=== PATIENT | female | born 1940 | race Caucasian/White ===

== ENCOUNTER 2019-05-22 15:11 | Emergency (ER) | payer MEDICARE, BC ==
[2019-05-22] MEDS ORDERED: Sodium Chloride 0.9% 10 ML Syringe FLUSH PRN (15:29)
[2019-05-22 15:43] VITALS: BP 112/16
--- NOTE | 2019-05-22 15:46 | EDM.PDOC ---
ED HPI GENERAL MEDICAL PROBLEM - General Chief Complaint: Respiratory Problem Stated Complaint: SOB Time Seen by Provider: 05/22/19 15:15 Source of Information: Reports: Patient, EMS - History of Present Illness INITIAL COMMENTS - FREE TEXT/NARRATIVE: Patient is a 78 yo WF who presented to the ED because apparently she slipped and fell from her wheelchair and was on the ground for an hour. She could not get up from the ground because of her amputated leg and it took her an hour to call 911. Upon EMS arrival at the seen she is hypoxemic with oxygen saturation of 65. According to Beatriz she has cough which is non productive with associated dyspnea. There is no fever or chills. - Related Data Allergies Allergy/AdvReac Type Severity Reaction Status Date / Time No Known Allergies Allergy Verified 10/31/16 17:42 Home Meds: Home Meds Aspirin/Calcium Carbonate/Mag [Aspirin Buffered 325 mg Tab] 325 mg PO DAILY 08/08 [History] Calcium Carbonate/Vitamin D3 [Caltrate 600 Plus D3 Tablet] 1 each PO DAILY 05/04 [History] Carvedilol [Coreg] 6.25 mg PO BIDMEALS 05/04/15 [History] Cholecalciferol (Vitamin D3) [Vitamin D3] 1,000 unit PO DAILY 05/04/15 [History] Glimepiride [Amaryl] 4 mg PO WITHBREAKFAST 05/04/15 [History] Omeprazole 20 mg PO DAILY PRN 05/04/15 [History] Pravastatin [Pravachol] 20 mg PO BEDTIME 05/04/15 [History] Sertraline [Zoloft] 200 mg PO DAILY 05/04/15 [History] metFORMIN [Glucophage] 1,000 mg PO BIDMEALS 05/04/15 [History] Fluticasone Propionate [Flonase] 1 spray BEN BID 11/01/16 [History] Azithromycin [IMW: Azithromycin] 250 mg PO DAILY 6 Days tablet 11/04/16 [Rx] Past Medical History HEENT History: Reports: Other (See Below) Other HEENT History: eyes dry since has been ill Cardiovascular History: Reports: Bypass, Heart Valve Replacement, Hypertension Gastrointestinal History: Reports: Cholelithiasis Genitourinary History: Reports: Urinary Incontinence 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 Denies: Sputum Cardiovascular: Reports: No Symptoms. Denies: Chest Pain, Edema Endocrine: Reports: No Symptoms GI/Abdominal: Reports: No Symptoms : Reports: No Symptoms Musculoskeletal: Reports: No Symptoms Skin: Reports: No Symptoms Neurological: Reports: No Symptoms ED EXAM, GENERAL - Physical Exam Exam: See Below Exam Limited By: No Limitations General Appearance: Alert, No Apparent Distress Eye Exam: Bilateral Eye: PERRL Ears: Normal External Exam Ear Exam: Bilateral Ear: TM Bulging, TM Perforation Nose: Normal Inspection, Normal Mucosa Throat/Mouth: Normal Inspection, Normal Lips Head: Atraumatic, Normocephalic Neck: Normal Inspection, Supple, Non-Tender Respiratory/Chest: No Respiratory Distress, Lungs Clear, No Accessory Muscle Use Cardiovascular: Normal Peripheral Pulses, Regular Rate, Rhythm GI/Abdominal: Normal Bowel Sounds, Non-Tender, No Organomegaly, No Distention Back Exam: Normal Inspection Extremities: Normal Inspection, Normal Range of Motion Neurological: Alert, Oriented, CN II-XII Intact, No Motor/Sensory Deficits Course - Vital Signs Text/Narrative:: labs reviewed with patient and son IVF bolus Zosyn 4.5 gm duoneb 0xygen VNC Consult with Rodrick Hernández-Dr Diaz and agreed with above plan Last Recorded V/S: Last Vital Signs Temp 36.4 C 05/22/19 15:12 Pulse 81 05/22/19 15:12 Resp 24 H 05/22/19 15:12 BP 112/16 L 05/22/19 15:12 Pulse Ox 94 L 05/22/19 15:12 - Orders/Labs/Meds Orders: Active Orders 24 hr Category Date Time Status EKG Documentation Completion [RC] ASDIRECTED Care 05/22/19 15:20 Active Chest 1V Frontal [CR] Stat Exams 05/22/19 15:18 Taken CULTURE BLOOD [BC] Urgent Lab 05/22/19 16:00 Received CULTURE BLOOD [BC] Urgent Lab 05/22/19 16:10 Received Piperacillin/Tazobactam [Zosyn] 4.5 gm Med 05/22/19 16:30 Active Sodium Chloride 0.9% [Normal Saline] 100 ml IV Q6H Sodium Chloride 0.9% [Normal Saline] 1,000 ml Med 05/22/19 16:07 Active IV .BOLUS Sodium Chloride 0.9% [Saline Flush] Med 05/22/19 15:29 Active 10 ml FLUSH ASDIRECTED PRN Blood Culture x2 Reflex Set [OM.PC] Urgent Oth 05/22/19 15:56 Ordered Resuscitation Status Routine Resus Stat 05/22/19 16:20 Ordered EKG 12 Lead [EK] Routine Ther 05/22/19 15:18 Ordered Medication Orders Sodium Chloride (Normal Saline) 1,000 mls @ 999 mls/hr IV .BOLUS ONE Stop: 05/22/19 17:07 Last Admin: 05/22/19 16:10 Dose: 999 mls/hr Piperacillin Sod/Tazobactam (Sod 4.5 gm/ Sodium Chloride) 100 mls @ 200 mls/hr IV Q6H [facility] Last Admin: 05/22/19 16:34 Dose: 200 mls/hr Sodium Chloride (Saline Flush) 10 ml FLUSH ASDIRECTED PRN PRN Reason: IV Use Last Admin: 05/22/19 15:38 Dose: 10 ml Labs: Laboratory Tests 05/22/19 05/22/19 05/22/19 Range/Units 15:30 15:30 15:30 WBC 12.0 (4.5-12.0) X10-3/uL RBC 4.64 (3.23-5.20) x10(6)uL Hgb 14.4 (11.5-15.5) g/dL Hct 42.7 (30.0-51.3) % MCV 92.0 (80-96) fL MCH 31.1 (27.7-33.6) pg MCHC 33.8 (32.2-35.4) g/dL RDW 14.1 (11.5-15.5) % Plt Count 264 (125-369) X10(3)uL MPV 7.7 (7.4-10.4) fL Neut % (Auto) 80.5 (46-82) % Lymph % (Auto) 11.1 L (13-37) % [place] % (Auto) 6.2 (4-12) % Eos % (Auto) 2 (1.0-5.0) % Baso % (Auto) 0 (0-2) % Neut # (Auto) 9.8 H (1.6-8.3) # Lymph # (Auto) 1.3 (0.6-5.0) # [place] # (Auto) 0.7 (0.0-1.3) # Eos # (Auto) 0.2 (0.0-0.8) # Baso # (Auto) 0.0 (0.0-0.2) # POC VBG pH (7.31-7.41) POC VBG pCO2 (41-51) mmHG POC VBG HCO3 (23-28) mmol/L POC VBG Total CO2 (24-29) mmol/L POC VBG Base Excess (-2-3) mmol/L Sodium 137 (135-145) mmol/L Potassium 5.1 (3.5-5.3) mmol/L Chloride 102 (100-110) mmol/L Carbon Dioxide 21 (21-32) mmol/L BUN 35 H (7-18) mg/dL Creatinine 1.3 H (0.55-1.02) mg/dL Est Cr Clr Drug Dosing 34.68 mL/min Estimated GFR (MDRD) 40 L (>60) BUN/Creatinine Ratio 26.9 H (9-20) Glucose 171 H (80-116) mg/dL Lactic Acid (0.4-2.2) mmol/L Calcium 8.9 (8.6-10.2) mg/dL Total Bilirubin 0.5 (0.1-1.3) mg/dL AST 39 H (5-25) IU/L ALT 42 H (12-36) U/L Alkaline Phosphatase 111 (56-112) IU/L Troponin I 0.018 (<0.017-0.056) ng/mL NT-Pro-B Natriuret Pep 4838 H* (<=450) pg/mL Total Protein 7.3 (6.0-8.0) g/dL Albumin 3.5 (3.2-4.6) g/dL Globulin 3.8 g/dL Albumin/Globulin Ratio 0.9 Urine Color (YELLOW) Urine Appearance (CLEAR) Urine pH (5.0-6.5) Ur Specific [place] (1.010-1.025) Urine Protein (NEGATIVE) mg/dL Urine Glucose (UA) (NORMAL) mg/dL Urine Ketones (NEGATIVE) mg/dL Urine Occult Blood (NEGATIVE) Urine Nitrite (NEGATIVE) Urine Bilirubin (NEGATIVE) Urine Urobilinogen (NEGATIVE) mg/dL Ur Leukocyte Esterase (NEGATIVE) Urine RBC (0-5) Urine WBC (0-5) Ur Squamous Epith Cells (NS,R,O) Urine Bacteria (NS) 05/22/19 05/22/19 05/22/19 Range/Units 15:30 15:48 16:38 WBC (4.5-12.0) X10-3/uL RBC (3.23-5.20) x10(6)uL Hgb (11.5-15.5) g/dL Hct (30.0-51.3) % MCV (80-96) fL MCH (27.7-33.6) pg MCHC (32.2-35.4) g/dL RDW (11.5-15.5) % Plt Count (125-369) X10(3)uL MPV (7.4-10.4) fL Neut % (Auto) (46-82) % Lymph % (Auto) (13-37) % [place] % (Auto) (4-12) % Eos % (Auto) (1.0-5.0) % Baso % (Auto) (0-2) % Neut # (Auto) (1.6-8.3) # Lymph # (Auto) (0.6-5.0) # [place] # (Auto) (0.0-1.3) # Eos # (Auto) (0.0-0.8) # Baso # (Auto) (0.0-0.2) # POC VBG pH 7.28 L (7.31-7.41) POC VBG pCO2 37.3 L (41-51) mmHG POC VBG HCO3 17.5 L (23-28) mmol/L POC VBG Total CO2 19 L (24-29) mmol/L POC VBG Base Excess -9 L (-2-3) mmol/L Sodium (135-145) mmol/L Potassium (3.5-5.3) mmol/L Chloride (100-110) mmol/L Carbon Dioxide (21-32) mmol/L BUN (7-18) mg/dL Creatinine (0.55-1.02) mg/dL Est Cr Clr Drug Dosing mL/min Estimated GFR (MDRD) (>60) BUN/Creatinine Ratio (9-20) Glucose (80-116) mg/dL Lactic Acid 4.6 H (0.4-2.2) mmol/L Calcium (8.6-10.2) mg/dL Total Bilirubin (0.1-1.3) mg/dL AST (5-25) IU/L ALT (12-36) U/L Alkaline Phosphatase (56-112) IU/L Troponin I (<0.017-0.056) ng/mL NT-Pro-B Natriuret Pep (<=450) pg/mL Total Protein (6.0-8.0) g/dL Albumin (3.2-4.6) g/dL Globulin g/dL Albumin/Globulin Ratio Urine Color Yellow (YELLOW) Urine Appearance Clear (CLEAR) Urine pH 5.0 (5.0-6.5) Ur Specific [place] 1.020 (1.010-1.025) Urine Protein 30 H (NEGATIVE) mg/dL Urine Glucose (UA) 50 H (NORMAL) mg/dL Urine Ketones Negative (NEGATIVE) mg/dL Urine Occult Blood Negative (NEGATIVE) Urine Nitrite Negative (NEGATIVE) Urine Bilirubin Negative (NEGATIVE) Urine Urobilinogen Normal (NEGATIVE) mg/dL Ur Leukocyte Esterase Small H (NEGATIVE) Urine RBC 0-5 (0-5) Urine WBC 0-5 (0-5) Ur Squamous Epith Cells Moderate H (NS,R,O) Urine Bacteria Moderate H (NS) Meds: Medications Generic Name Dose Route Start Last Admin Trade Name Freq PRN Reason Stop Dose Admin Sodium Chloride 1,000 mls @ 999 mls/hr 05/22/19 16:07 05/22/19 16:10 Normal Saline IV 05/22/19 17:07 999 mls/hr .BOLUS ONE Administration Piperacillin Sod/Tazobactam 100 mls @ 200 mls/hr 05/22/19 16:30 05/22/19 16: 34 Sod 4.5 gm/ Sodium Chloride IV 200 mls/hr Q6H SANDIP Administration Sodium Chloride 10 ml 05/22/19 15:29 05/22/19 15:38 Saline Flush FLUSH 10 ml ASDIRECTED PRN Administration IV Use Departure - Departure Time of Disposition: 16:00 Disposition: DC/Tfer to SNF 03 Clinical Impression: Sepsis - Discharge Information Referrals: Willis Salgado MD [Primary Care Provider] - Forms: ED Department Discharge - My Orders Last 24 Hours: My Active Orders 05/22/19 15:18 Chest 1V Frontal [CR] Stat EKG 12 Lead [EK] Routine 05/22/19 15:20 EKG Documentation Completion [RC] ASDIRECTED 05/22/19 15:29 Sodium Chloride 0.9% [Saline Flush] 10 ml FLUSH ASDIRECTED PRN 05/22/19 15:56 Blood Culture x2 Reflex Set [OM.PC] Urgent 05/22/19 16:00 CULTURE BLOOD [BC] Urgent 05/22/19 16:07 Sodium Chloride 0.9% [Normal Saline] 1,000 ml IV .BOLUS 05/22/19 16:10 CULTURE BLOOD [BC] Urgent 05/22/19 16:20 Resuscitation Status Routine 05/22/19 16:30 Piperacillin/Tazobactam [Zosyn] 4.5 gm Sodium Chloride 0.9% [Normal Saline] 100 ml IV Q6H - Assessment/Plan Last 24 Hours: My Active Orders 05/22/19 15:18 Chest 1V Frontal [CR] Stat EKG 12 Lead [EK] Routine 05/22/19 15:20 EKG Documentation Completion [RC] ASDIRECTED 05/22/19 15:29 Sodium Chloride 0.9% [Saline Flush] 10 ml FLUSH ASDIRECTED PRN 05/22/19 15:56 Blood Culture x2 Reflex Set [OM.PC] Urgent 05/22/19 16:00 CULTURE BLOOD [BC] Urgent 05/22/19 16:07 Sodium Chloride 0.9% [Normal Saline] 1,000 ml IV .BOLUS 05/22/19 16:10 CULTURE BLOOD [BC] Urgent 05/22/19 16:20 Resuscitation Status Routine 05/22/19 16:30 Piperacillin/Tazobactam [Zosyn] 4.5 gm Sodium Chloride 0.9% [Normal Saline] 100 ml IV Q6H
[2019-05-22] MEDS ORDERED: Sodium Chloride 0.9% 1,000 ML IV ONE (16:07)
[2019-05-22] MEDS ORDERED: Piperacillin/Tazobactam 4.5 GM in Sodium Chloride 0.9% 100 ML IV SCH (16:30)
== END 2019-05-22 17:34 ==
LOC: FB.ED 15:11
DX: A41.9 Sepsis, unspecified organism (principal); I10 Essential (primary) hypertension; F32.9 Major depressive disorder, single episode, unspecified; E11.9 Type 2 diabetes mellitus without complications; Z79.82 Long term (current) use of aspirin; Z79.899 Other long term (current) drug therapy; Z79.84 Long term (current) use of oral hypoglycemic drugs
CPT/HCPCS: 36415; 71045; 80053; 81001; 82803; 83605; 83880; 84484; 85025; 87040; 93005; 96361; 96365; 99285; J2543; J7030

== ENCOUNTER 2019-10-24 14:50 | Emergency (ER) | payer BC, MEDICARE ==
[2019-10-24] MEDS ORDERED: MINERAL OIL RECTAL ONE (15:09)
--- NOTE | 2019-10-24 15:16 | EDM.PDOC ---
ED HPI GENERAL MEDICAL PROBLEM - General Stated Complaint: ABD PAIN Time Seen by Provider: 10/24/19 15:00 Source of Information: Reports: Patient History Limitations: Reports: No Limitations - History of Present Illness INITIAL COMMENTS - FREE TEXT/NARRATIVE: has pain in the left upper quadrant since 2-3 days with associated pain in the ribs in the same area has no fever or chills , no nausea or vomiting states she has not had BM for 3-4 days, has not had any appetite had same in the past one week and resolved with enema Onset: Gradual Duration: Day(s): (3) Location: Reports: Abdomen Quality: Reports: Ache, Dull Severity: Moderate Improves with: Reports: Movement Worsens with: Reports: Eating Context: Reports: Activity Associated Symptoms: Reports: No Other Symptoms - Related Data Allergies Allergy/AdvReac Type Severity Reaction Status Date / Time No Known Allergies Allergy Verified 10/31/16 17:42 Home Meds: Home Meds Aspirin/Calcium Carbonate/Mag [Aspirin Buffered 325 mg Tab] 325 mg PO DAILY 08/08 [History] Calcium Carbonate/Vitamin D3 [Caltrate 600 Plus D3 Tablet] 1 each PO DAILY 05/04 [History] Cholecalciferol (Vitamin D3) [Vitamin D3] 1,000 unit PO DAILY 05/04/15 [History] Glimepiride [Amaryl] 4 mg PO WITHBREAKFAST 05/04/15 [History] Omeprazole 20 mg PO DAILY PRN 05/04/15 [History] Pravastatin [Pravachol] 20 mg PO BEDTIME 05/04/15 [History] Sertraline [Zoloft] 200 mg PO DAILY 05/04/15 [History] carvediloL [Coreg] 6.25 mg PO BIDMEALS 05/04/15 [History] metFORMIN [Glucophage] 1,000 mg PO BIDMEALS 05/04/15 [History] Fluticasone Propionate [Flonase] 1 spray BEN BID 11/01/16 [History] Azithromycin [IMW: Azithromycin] 250 mg PO DAILY 6 Days tablet 11/04/16 [Rx] Sennosides/Docusate Sodium [Sennosides-Docusate Sodium] 1 each PO BID 30 Days # 60 tab 10/24/19 [Rx] Past Medical History HEENT History: Reports: Other (See Below) Other HEENT History: eyes dry since has been ill Cardiovascular History: Reports: Bypass, Heart Valve Replacement, Hypertension Gastrointestinal History: Reports: Cholelithiasis Genitourinary History: Reports: Urinary Incontinence 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 Constitutional: Reports: No Symptoms HEENT: Reports: No Symptoms Respiratory: Reports: No Symptoms Cardiovascular: Reports: No Symptoms Endocrine: Reports: No Symptoms GI/Abdominal: Reports: Abdominal Pain, Anorexia, Decreased Appetite, Distension , Flatus Musculoskeletal: Reports: Back Pain Skin: Reports: No Symptoms Neurological: Reports: No Symptoms Psychiatric: Reports: No Symptoms Hematologic/Lymphatic: Reports: No Symptoms ED EXAM, GI/ABD - Physical Exam Exam: See Below Exam Limited By: No Limitations General Appearance: Alert, WD/WN, No Apparent Distress Eyes: Bilateral: EOMI Ears: Normal External Exam Nose: Normal Inspection Throat/Mouth: Normal Inspection Head: Atraumatic, Normocephalic Neck: Supple, Non-Tender, Full Range of Motion Respiratory/Chest: Lungs Clear, Other (tender ribso n the left side of chest wall) GI/Abdominal Exam: Soft, Tender (in the LUQ), Abnormal Bowel Sounds (hypoactive) . No: Guarding, Rigid, Rebound Back Exam: Full Range of Motion. No: CVA Tenderness (R), CVA Tenderness (L) Extremities: Normal Range of Motion, Non-Tender, Other (left leg amputated) Neurological: Alert, Oriented Course - Orders/Labs/Meds Orders: Active Orders 24 hr Category Date Time Status Abdomen 2V AP Flat Upright [CR] Stat Exams 10/24/19 15:08 Taken Labs: Laboratory Tests 10/24/19 Range/Units 15:40 WBC 6.6 (4.5-12.0) X10-3/uL RBC 4.45 (3.23-5.20) x10(6)uL Hgb 13.5 (11.5-15.5) g/dL Hct 40.6 (30.0-51.3) % MCV 91.2 (80-96) fL MCH 30.3 (27.7-33.6) pg MCHC 33.2 (32.2-35.4) g/dL RDW 13.2 (11.5-15.5) % Plt Count 274 (125-369) X10(3)uL MPV 7.2 L (7.4-10.4) fL Neut % (Auto) 62.3 (46-82) % Lymph % (Auto) 29.0 (13-37) % [place] % (Auto) 8.0 (4-12) % Eos % (Auto) 0 L (1.0-5.0) % Baso % (Auto) 1 (0-2) % Neut # (Auto) 4.2 (1.6-8.3) # Lymph # (Auto) 1.9 (0.6-5.0) # [place] # (Auto) 0.5 (0.0-1.3) # Eos # (Auto) 0.0 (0.0-0.8) # Baso # (Auto) 0.0 (0.0-0.2) # Meds: Medications Discontinued Medications Generic Name Dose Route Start Last Admin Trade Name Terrellq PRN Reason Stop Dose Admin Acetaminophen 1,000 mg 10/24/19 15:55 10/24/19 16:07 Tylenol Extra Strength PO 10/24/19 15:56 1,000 mg ONETIME ONE Administration Mineral Oil 133 ml 10/24/19 15:09 10/24/19 16:07 Mineral Oil Enema RECTAL 10/24/19 15:10 133 ml ONETIME ONE Administration - Re-Assessments/Exams Free Text/Narrative Re-Assessment/Exam: 10/24/19 16:59 pt was given enema and had good return , feels beer will start on Pericolace instead of Miralax Departure - Departure Time of Disposition: 05:05 Disposition: Home, Self-Care 01 Clinical Impression: Constipation, Continuous left upper quadrant pain, Costochondritis, acute - Discharge Information *PRESCRIPTION DRUG MONITORING PROGRAM REVIEWED*: Not Applicable *COPY OF PRESCRIPTION DRUG MONITORING REPORT IN PATIENT GERRI: Not Applicable Instructions: Costochondritis, Posc-en-Zkgm, Constipation, Adult, High-Fiber Diet Referrals: Willis Salgado MD [Primary Care Provider] - Sepsis Event Note - Focused Exam Date Exam was Performed: 10/24/19 Time Exam was Performed: 16:57 - My Orders Last 24 Hours: My Active Orders 10/24/19 15:08 Abdomen 2V AP Flat Upright [CR] Stat - Assessment/Plan Last 24 Hours: My Active Orders 10/24/19 15:08 Abdomen 2V AP Flat Upright [CR] Stat
[2019-10-24] MEDS ORDERED: Acetaminophen 500 MG Tab PO ONE (15:55)
--- NOTE | 2019-10-24 17:48 | CR ---
INDICATION: Left-sided abdominal pain. ABDOMEN, TWO VIEW: Four images of the abdomen were obtained in supine and upright projections 10/24/19 - no comparisons. Moderately severe dextroconvex rotoscoliosis of the lumbar spine is noted with degenerative hypertrophic changes and disk disease at all levels in varying degrees, most severe more inferiorly. The pattern of gas and feces is nonspecific without evidence of free air or obstruction. Somewhat increased density in the pelvis is most likely on the basis of some stool in the rectosigmoid and rectum. However, no significant distention of the colon is seen to suggest an obstructive process. Phleboliths are noted in the pelvis. IMPRESSION: 1. Nonacute abdomen. 2. Rotoscoliosis with degenerative changes and disk disease lumbosacral spine. 3. ASD with aortic calcifications. MTDD
[2019-10-24 18:45] VITALS: BP 120/42; PULSE 66
== END 2019-10-24 17:20 | disposition home or self-care (01) ==
LOC: FB.ED 14:50
DX: R10.32 Left lower quadrant pain (principal); M94.0 Chondrocostal junction syndrome [Tietze]; K59.00 Constipation, unspecified; E11.9 Type 2 diabetes mellitus without complications; I10 Essential (primary) hypertension; F32.9 Major depressive disorder, single episode, unspecified; Z79.82 Long term (current) use of aspirin; Z79.899 Other long term (current) drug therapy; Z79.84 Long term (current) use of oral hypoglycemic drugs
CPT/HCPCS: 36415; 74019; 85025; 99283; 99284; A9270

== ENCOUNTER 2019-10-30 19:51 | Emergency (ER) | payer MEDICARE ==
--- NOTE | 2019-10-30 20:19 | EDM.PDOC ---
ED HPI GENERAL MEDICAL PROBLEM - General Stated Complaint: CHEST PAIN Time Seen by Provider: 10/30/19 20:15 Source of Information: Reports: Patient History Limitations: Reports: No Limitations - History of Present Illness INITIAL COMMENTS - FREE TEXT/NARRATIVE: 79-year-old female who reports onset of left sided chest pain that is mostly lower chest pain about 3-4 weeks ago. She reports the pain has been there continuously since then but it has been at a low level until today at approximately 1 PM when she reports it begin to be worse with sharp pain that seemed to radiate up into her shoulder. She also has had sharp pains going down her left arm for about the past 5 days but that also seem to be worse today. This began to be worse at approximately 1 PM today. She rates the pain as an 8- 10/10. It is worse with deep breath and with palpation. No nausea or vomiting today but she did have some nausea yesterday. She has been eating and drinking normally. No cough. No fevers. No weakness. No dizziness. No syncope or presyncope. She is a somewhat difficult historian and is rather vague about times but it does appear that this pain has been there for longer than one week. And it also appears to have been continual during this period of time. There are no other associated signs or symptoms. There are no other modifying factors. 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) (Nothing) Left Upper Arm Pain Score (Numeric/FACES): 10 Left Chest Pain Score (Numeric/FACES): 8 - Related Data Allergies Allergy/AdvReac Type Severity Reaction Status Date / Time No Known Allergies Allergy Verified 10/31/16 17:42 Home Meds: Home Meds Aspirin/Calcium Carbonate/Mag [Aspirin Buffered 325 mg Tab] 325 mg PO DAILY 08/08 [History] Glimepiride [Amaryl] 4 mg PO WITHBREAKFAST 05/04/15 [History] Omeprazole 20 mg PO DAILY PRN 05/04/15 [History] Pravastatin [Pravachol] 20 mg PO BEDTIME 05/04/15 [History] Sertraline [Zoloft] 200 mg PO DAILY 05/04/15 [History] carvediloL [Coreg] 6.25 mg PO BIDMEALS 05/04/15 [History] metFORMIN [Glucophage] 1,000 mg PO BIDMEALS 05/04/15 [History] Hydrocodone/Acetaminophen [[place] 5-325 Tablet] 1 each PO Q6H PRN #14 tablet 03/13 [Rx] Sennosides/Docusate Sodium [Sennosides-Docusate Sodium] 1 each PO DAILY [History] valACYclovir [Valtrex] 1,000 mg PO TID 7 Days #21 tab 10/30/19 [Rx] Past Medical History HEENT History: Reports: Other (See Below) Other HEENT History: eyes dry since has been ill Cardiovascular History: Reports: Bypass, CAD, Heart Valve Replacement, Hypertension Genitourinary History: Reports: Urinary Incontinence 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 Musculoskeletal History: Reports: Amputation, Other (See Below) Other Musculoskeletal History: left bka Psychiatric History: Reports: Depression Endocrine/Metabolic History: Reports: Diabetes, Type II Other Hematologic History: BLOOD CLOTS IN HEART YEARS AGO - Past Surgical History Cardiovascular Surgical History: Reports: Coronary Artery Bypass, Valve Replacement (Aortic valve replacement with pig valve) GI Surgical History: Reports: Cholecystectomy Musculoskeletal Surgical History: Reports: Amputation (Left below the knee amputation) Social & Family History - Tobacco Use Smoking Status *Q: Never Smoker - Caffeine Use Caffeine Use: Reports: Soda - Alcohol Use Alcohol Use History: No - Living Situation & Occupation Occupation: Retired Social History Comment: Lives with her son who is her caregiver ED ROS GENERAL - Review of Systems Review Of Systems: See Below Constitutional: Reports: No Symptoms HEENT: Reports: No Symptoms Respiratory: Reports: Shortness of Breath, Pleuritic Chest Pain Cardiovascular: Reports: Chest Pain GI/Abdominal: Reports: No Symptoms : Reports: No Symptoms Musculoskeletal: Reports: Arm Pain (Left arm pain) Skin: Reports: No Symptoms Neurological: Reports: No Symptoms Hematologic/Lymphatic: Reports: Easy Bruising (Chronically anticoagulated with Coumadin) ED EXAM, GENERAL - Physical Exam Exam: See Below Exam Limited By: No Limitations General Appearance: Alert, WD/WN, Moderate Distress Eye Exam: Bilateral Eye: EOMI, Normal Inspection, PERRL Ears: Normal External Exam, Hearing Grossly Normal Ear Exam: Bilateral Ear: Auricle Normal Nose: Normal Inspection, Normal Mucosa, No Blood Throat/Mouth: Normal Inspection, Normal Oropharynx, Normal Voice, No Airway Compromise Head: Atraumatic, Normocephalic Neck: Normal Inspection, Supple, Non-Tender, Full Range of Motion Respiratory/Chest: No Respiratory Distress, Lungs Clear, Normal Breath Sounds, Other (Tender to palpation over her left anterior lateral chest. No crepitus or subcutaneous emphysema.) Cardiovascular: Normal Peripheral Pulses, Regular Rate, Rhythm, Systolic Murmur Peripheral Pulses: 2+: Radial (L), Radial (R), Dorsalis Pedis (L), Dorsalis Pedis (R) GI/Abdominal: Normal Bowel Sounds, Soft, Non-Tender, No Mass Back Exam: Normal Inspection, Full Range of Motion Extremities: Normal Inspection, Normal Range of Motion Neurological: Alert, CN II-XII Intact, Normal Cognition, No Motor/Sensory Deficits, Other (Conversant but somewhat poor historian. Unsure of times) Skin Exam: Warm, Dry, Intact, Normal Color, No Rash EKG INTERPRETATION EKG Date: 10/30/19 Time: 20:07 Rhythm: NSR Rate (Beats/Min): 76 [place]: Normal P-Wave: Enlarged QRS: Normal ST-T: Other (LVH with repolarization abnormality) QT: Prolonged (QTc) Comparison: No Change (No change from EKG on 05/21/2019.) Course - Vital Signs Last Recorded V/S: Last Vital Signs Temp 37.3 C 10/30/19 20:18 Pulse 75 10/30/19 20:39 Resp 20 10/30/19 20:39 BP 112/61 10/30/19 20:39 Pulse Ox - Orders/Labs/Meds Orders: Active Orders 24 hr Category Date Time Status EKG Documentation Completion [RC] ASDIRECTED Care 10/30/19 20:32 Active Sodium Chloride 0.9% [Saline Flush] Med 10/30/19 20:31 Active 10 ml FLUSH ASDIRECTED PRN Peripheral IV Insertion Adult [OM.PC] Routine Oth 10/30/19 20:31 Ordered EKG 12 Lead [EK] Routine Ther 10/30/19 20:31 Ordered Medication Orders Sodium Chloride (Saline Flush) 10 ml FLUSH ASDIRECTED PRN PRN Reason: Keep Vein Open Last Admin: 10/30/19 21:22 Dose: 10 ml Labs: Laboratory Tests 10/30/19 10/30/19 10/30/19 Range/Units 20:45 20:45 20:45 WBC 6.6 (4.5-12.0) X10-3/uL RBC 3.96 (3.23-5.20) x10(6)uL Hgb 12.2 (11.5-15.5) g/dL Hct 36.4 (30.0-51.3) % MCV 91.9 (80-96) fL MCH 30.9 (27.7-33.6) pg MCHC 33.6 (32.2-35.4) g/dL RDW 13.9 (11.5-15.5) % Plt Count 188 (125-369) X10(3)uL MPV 7.2 L (7.4-10.4) fL Neut % (Auto) 59.6 (46-82) % Lymph % (Auto) 28.2 (13-37) % [place] % (Auto) 10.9 (4-12) % Eos % (Auto) 1 (1.0-5.0) % Baso % (Auto) 1 (0-2) % Neut # (Auto) 3.9 (1.6-8.3) # Lymph # (Auto) 1.9 (0.6-5.0) # [place] # (Auto) 0.7 (0.0-1.3) # Eos # (Auto) 0.1 (0.0-0.8) # Baso # (Auto) 0.0 (0.0-0.2) # PT 10.1 (8.7-11.1) INR 1.04 (0.89-1.13) D-Dimer, Quantitative (0.0-0.59) mg/LFEU Sodium 139 (135-145) mmol/L Potassium 4.8 (3.5-5.3) mmol/L Chloride 104 (100-110) mmol/L Carbon Dioxide 24 (21-32) mmol/L BUN 32 H (7-18) mg/dL Creatinine 1.3 H (0.55-1.02) mg/dL Est Cr Clr Drug Dosing 34.12 mL/min Estimated GFR (MDRD) 40 L (>60) BUN/Creatinine Ratio 24.6 H (9-20) Glucose 207 H (80-116) mg/dL Calcium 9.1 (8.6-10.2) mg/dL Magnesium 1.9 (1.8-2.5) mg/dL Total Bilirubin 0.4 (0.1-1.3) mg/dL AST 58 H D (5-25) IU/L ALT 72 H D (12-36) U/L Alkaline Phosphatase 122 H (56-112) IU/L Troponin I (4.0-60.3) pg/mL Total Protein 6.8 (6.0-8.0) g/dL Albumin 3.5 (3.2-4.6) g/dL Globulin 3.3 g/dL Albumin/Globulin Ratio 1.1 10/30/19 10/30/19 Range/Units 20:45 20:55 WBC (4.5-12.0) X10-3/uL RBC (3.23-5.20) x10(6)uL Hgb (11.5-15.5) g/dL Hct (30.0-51.3) % MCV (80-96) fL MCH (27.7-33.6) pg MCHC (32.2-35.4) g/dL RDW (11.5-15.5) % Plt Count (125-369) X10(3)uL MPV (7.4-10.4) fL Neut % (Auto) (46-82) % Lymph % (Auto) (13-37) % [place] % (Auto) (4-12) % Eos % (Auto) (1.0-5.0) % Baso % (Auto) (0-2) % Neut # (Auto) (1.6-8.3) # Lymph # (Auto) (0.6-5.0) # [place] # (Auto) (0.0-1.3) # Eos # (Auto) (0.0-0.8) # Baso # (Auto) (0.0-0.2) # PT (8.7-11.1) INR (0.89-1.13) D-Dimer, Quantitative 0.57 (0.0-0.59) mg/LFEU Sodium (135-145) mmol/L Potassium (3.5-5.3) mmol/L Chloride (100-110) mmol/L Carbon Dioxide (21-32) mmol/L BUN (7-18) mg/dL Creatinine (0.55-1.02) mg/dL Est Cr Clr Drug Dosing mL/min Estimated GFR (MDRD) (>60) BUN/Creatinine Ratio (9-20) Glucose (80-116) mg/dL Calcium (8.6-10.2) mg/dL Magnesium (1.8-2.5) mg/dL Total Bilirubin (0.1-1.3) mg/dL AST (5-25) IU/L ALT (12-36) U/L Alkaline Phosphatase (56-112) IU/L Troponin I 20.9 (4.0-60.3) pg/mL Total Protein (6.0-8.0) g/dL Albumin (3.2-4.6) g/dL Globulin g/dL Albumin/Globulin Ratio Meds: Medications Generic Name Dose Route Start Last Admin Trade Name Freq PRN Reason Stop Dose Admin Sodium Chloride 10 ml 10/30/19 20:31 10/30/19 21:22 Saline Flush FLUSH 10 ml ASDIRECTED PRN Administration Keep Vein Open Discontinued Medications Generic Name Dose Route Start Last Admin Trade Name Freq PRN Reason Stop Dose Admin Sodium Chloride 500 mls @ 999 mls/hr 10/30/19 21:31 10/30/19 21:42 Normal Saline IV 10/30/19 22:01 999 mls/hr .BOLUS ONE Administration Morphine Sulfate 2 mg 10/30/19 21:31 10/30/19 21:42 Morphine IVPUSH 10/30/19 21:32 2 mg ONETIME ONE Administration Ondansetron HCl 4 mg 10/30/19 21:31 10/30/19 21:43 Zofran IVPUSH 10/30/19 21:32 4 mg ONETIME ONE Administration Valacyclovir HCl 1,000 mg 10/30/19 22:18 Valtrex PO 10/30/19 22:19 ONETIME ONE - Radiology Interpretation Free Text/Narrative:: Chest x-ray shows no acute disease per the radiologist. - Re-Assessments/Exams Free Text/Narrative Re-Assessment/Exam: 10/30/19 22:15: Patient's blood tests were reassuringly normal. Bili, her troponin and her d-dimer were normal. Her chest x-ray also showed no evidence of infiltrate or lesion on her bones. She was given a dose of morphine IV and a 500 mL bolus of normal saline and she reports that her pain wasn't much improved but she did appear more comfortable than previous. Reevaluation of the patient's this time including at her arm after she was complaining of an burning on her left arm did show a rash that was consistent with shingles on her left forearm and also a few spots on her left upper back. She reports that the rash on her forearm is been there then a week. I will treat her with a course of Valtrex. I will also give a prescription of hydrocodone 5/325 to use for moderate to severe pain. She should use Tylenol for pain otherwise. She should also follow-up with her primary doctor. Departure - Departure Time of Disposition: 22:30 Disposition: Home, Self-Care 01 Condition: Good (Stable) Clinical Impression: Left-sided chest wall pain, Left arm pain Herpes zoster Qualifiers: Herpes zoster complications: without complications Qualified Code(s): B02.9 - Zoster without complications Prescriptions: Hydrocodone/Acetaminophen [[place] 5-325 Tablet] 1 each PO Q6H PRN #14 tablet PRN Reason: Moderate to severe pain valACYclovir [Valtrex] 1,000 mg PO TID 7 Days #21 tab Referrals: Willis Salgado MD [Primary Care Provider] - Additional Instructions: You appear to have shingles affecting your left chest and your left arm. Your blood tests were reassuringly normal. Your chest x-ray was normal. Your EKG showed no changes from previous EKGs. The pain you are having appears to be coming from a shingles outbreak. Medication as prescribed (Valtrex 1000 milligrams, hydrocodone 5/325). Only take the hydrocodone for moderate to severe pain. Otherwise you may take Tylenol 1000 mg by mouth every 6 hours as needed for pain. If you take Tylenol, you should not take the hydrocodone as it does have some Tylenol in it. You would need to wait 6 hours before you could take the hydrocodone after taking Tylenol. Follow-up with your primary doctor. Back to the emergency department for a high fever, trouble breathing, worsening pain, unrelenting vomiting or any other concerning sign or symptom. Sepsis Event Note - Focused Exam Vital Signs: Vital Signs Temp Pulse Resp BP 10/30/19 20:39 75 20 112/61 10/30/19 20:18 37.3 C 75 20 162/66 H Date Exam was Performed: 10/30/19 Time Exam was Performed: 22:20 - My Orders Last 24 Hours: My Active Orders 10/30/19 20:31 Sodium Chloride 0.9% [Saline Flush] 10 ml FLUSH ASDIRECTED PRN Peripheral IV Insertion Adult [OM.PC] Routine EKG 12 Lead [EK] Routine 10/30/19 20:32 EKG Documentation Completion [RC] ASDIRECTED - Assessment/Plan Last 24 Hours: My Active Orders 10/30/19 20:31 Sodium Chloride 0.9% [Saline Flush] 10 ml FLUSH ASDIRECTED PRN Peripheral IV Insertion Adult [OM.PC] Routine EKG 12 Lead [EK] Routine 10/30/19 20:32 EKG Documentation Completion [RC] ASDIRECTED
[2019-10-30] MEDS ORDERED: Sodium Chloride 0.9% 10 ML Syringe FLUSH PRN (20:31)
[2019-10-30] MEDS ORDERED: Ondansetron 4 MG/2 ML SDV IVPUSH ONE (21:31)
[2019-10-30] MEDS ORDERED: Sodium Chloride 0.9% 500 ML IV ONE (21:31)
[2019-10-30] MEDS ORDERED: Morphine 2 MG/ML Syringe IVPUSH ONE (21:31)
--- NOTE | 2019-10-30 21:43 | CR ---
INDICATION: Chest pain. CHEST ONE VIEW: AP upright view of the chest 10/30/19 was compared with and 11/03/16. Evidence of previous median sternotomy is noted. Left ventricular contour is slightly prominent. The heart is not grossly enlarged. No CHF is suggested. Overlying EKG leads are noted. An active infiltrate or effusion was not identified. There is an appearance of a dextroconvex scoliosis which most likely is on the basis of rotation of the chest to the left. Calcification is noted in the arch of the aorta. IMPRESSION: No acute process. MTDD
[2019-10-30] MEDS ORDERED: valACYclovir 500 MG Tab PO ONE (22:18)
[2019-10-30 23:44] VITALS: BP 122/62; PULSE 76
== END 2019-10-30 23:20 | disposition home or self-care (01) ==
LOC: FB.ED 19:51
DX: R07.89 Other chest pain (principal); B02.9 Zoster without complications; M79.602 Pain in left arm; I10 Essential (primary) hypertension; E11.9 Type 2 diabetes mellitus without complications; I25.10 Atherosclerotic heart disease of native coronary artery without angina pectoris; F32.9 Major depressive disorder, single episode, unspecified; Z79.82 Long term (current) use of aspirin; Z79.899 Other long term (current) drug therapy; Z79.84 Long term (current) use of oral hypoglycemic drugs
CPT/HCPCS: 36415; 71045; 80053; 83735; 84484; 85025; 85379; 85610; 93005; 93010; 96361; 96374; 96375; 99284; 99285; A9270; J2270; J2405; J7040

== ENCOUNTER 2019-11-11 13:41 | Emergency (ER) | payer MEDICARE, OTHER ==
[2019-11-11] MEDS ORDERED: Sodium Chloride 0.9% 1,000 ML IV SCH (14:45)
[2019-11-11] MEDS ORDERED: Gabapentin 600 MG Tab PO ONE (14:51)
[2019-11-11] MEDS ORDERED: Lidocaine/EPINEPHrine/Tetracaine Soln 5 ML Each TOP ONE (15:17)
[2019-11-11] MEDS ORDERED: Ketorolac 30 MG/ML SDV IVPUSH ONE (15:19)
[2019-11-11] MEDS ORDERED: Morphine 2 MG/ML SYRINGE IVPUSH ONE (16:06)
[2019-11-11] MEDS ORDERED: Sodium Chloride 0.9% 10 ML Syringe FLUSH PRN (16:12)
--- NOTE | 2019-11-11 16:54 | EDM.PDOC ---
ED HPI GENERAL MEDICAL PROBLEM - General Chief Complaint: General Stated Complaint: SHINGLES Time Seen by Provider: 11/11/19 13:45 Source of Information: Reports: Patient History Limitations: Reports: No Limitations - History of Present Illness INITIAL COMMENTS - FREE TEXT/NARRATIVE: Patient presented to the ED from the clinic because of uncontrolled pain from her shingles. she was diagnosed with shingles on 10/30/19 and is treated with valtrex, norco and gabapentin but nothing seems to help with the pain. left side mid back/left side rib Pain Score (Numeric/FACES): 10 - Related Data Allergies Allergy/AdvReac Type Severity Reaction Status Date / Time No Known Allergies Allergy Verified 10/31/16 17:42 Home Meds: Home Meds Aspirin/Calcium Carbonate/Mag [Aspirin Buffered 325 mg Tab] 325 mg PO DAILY 08/08 [History] Glimepiride [Amaryl] 4 mg PO WITHBREAKFAST 05/04/15 [History] Omeprazole 20 mg PO DAILY PRN 05/04/15 [History] Pravastatin [Pravachol] 20 mg PO BEDTIME 05/04/15 [History] Sertraline [Zoloft] 200 mg PO DAILY 05/04/15 [History] carvediloL [Coreg] 6.25 mg PO BIDMEALS 05/04/15 [History] metFORMIN [Glucophage] 1,000 mg PO BIDMEALS 05/04/15 [History] Hydrocodone/Acetaminophen [[place] 5-325 Tablet] 1 each PO Q6H PRN #14 tablet 03/13 [Rx] Sennosides/Docusate Sodium [Sennosides-Docusate Sodium] 1 each PO DAILY [History] valACYclovir [Valtrex] 1,000 mg PO TID 7 Days #21 tab 10/30/19 [Rx] Acetaminophen/HYDROcodone [[place] 325-5 MG] 2 tab PO Q4H PRN #20 tab 11/11/19 [Rx ] Sulfamethoxazole/Trimethoprim [Bactrim Ds Tablet] 1 each PO BID #6 tablet [Rx] Past Medical History HEENT History: Reports: Other (See Below) Other HEENT History: eyes dry since has been ill Cardiovascular History: Reports: Bypass, CAD, Heart Valve Replacement, Hypertension Gastrointestinal History: Reports: Cholelithiasis Genitourinary History: Reports: Urinary Incontinence 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 Musculoskeletal History: Reports: Amputation, Other (See Below) Other Musculoskeletal History: left bka Psychiatric History: Reports: Depression Endocrine/Metabolic History: Reports: Diabetes, Type II Other Hematologic History: BLOOD CLOTS IN HEART YEARS AGO Dermatologic History: Reports: Scleroderma - Past Surgical History Cardiovascular Surgical History: Reports: Coronary Artery Bypass, Valve Replacement (Aortic valve replacement with pig valve) GI Surgical History: Reports: Cholecystectomy Musculoskeletal Surgical History: Reports: Amputation (Left below the knee amputation) Social & Family History - Family History Family Medical History: Noncontributory - Caffeine Use Caffeine Use: Reports: Soda - Living Situation & Occupation Occupation: Retired ED ROS GENERAL - Review of Systems Review Of Systems: See Below Constitutional: Reports: No Symptoms HEENT: Reports: No Symptoms Respiratory: Reports: No Symptoms Cardiovascular: Reports: No Symptoms Endocrine: Reports: No Symptoms GI/Abdominal: Reports: No Symptoms : Reports: No Symptoms Musculoskeletal: Reports: No Symptoms Skin: Reports: No Symptoms Neurological: Reports: No Symptoms ED EXAM, GENERAL - Physical Exam Exam: See Below Exam Limited By: No Limitations General Appearance: Alert, No Apparent Distress Ears: Normal External Exam GI/Abdominal: Normal Bowel Sounds, Soft, Non-Tender, No Organomegaly Back Exam: Normal Inspection, Full Range of Motion Extremities: Normal Inspection, Normal Range of Motion Neurological: Alert, Oriented, CN II-XII Intact, Normal Cognition Course - Vital Signs Text/Narrative:: labs was reviewed and discussed with patient and her and verbalized full understanding toradol 15 mg IV morphine 2 mg IV x1 Last Recorded V/S: Last Vital Signs Temp 36.6 C 11/11/19 17:15 Pulse 88 11/11/19 17:15 Resp 18 11/11/19 17:15 BP 175/67 H 11/11/19 17:15 Pulse Ox 100 11/11/19 17:15 - Orders/Labs/Meds Labs: Laboratory Tests 11/11/19 11/11/19 11/11/19 Range/Units 14:37 14:45 14:45 WBC 6.7 (4.5-12.0) X10-3/uL RBC 3.63 (3.23-5.20) x10(6)uL Hgb 11.1 L (11.5-15.5) g/dL Hct 34.1 (30.0-51.3) % MCV 93.9 (80-96) fL MCH 30.4 (27.7-33.6) pg MCHC 32.4 (32.2-35.4) g/dL RDW 14.9 (11.5-15.5) % Plt Count 94 L (125-369) X10(3)uL MPV 7.3 L (7.4-10.4) fL Neutrophils % (Manual) 47 (46-82) % Lymphocytes % (Manual) 47 H (13-37) % Monocytes % (Manual) 5 (4-12) % Eosinophils % (Manual) 1 (0-5) % Sodium 141 (135-145) mmol/L Potassium 4.6 (3.5-5.3) mmol/L Chloride 105 (100-110) mmol/L Carbon Dioxide 25 (21-32) mmol/L BUN 32 H (7-18) mg/dL Creatinine 0.9 (0.55-1.02) mg/dL Est Cr Clr Drug Dosing TNP Estimated GFR (MDRD) > 60 (>60) BUN/Creatinine Ratio 35.6 H (9-20) Glucose 177 H (80-116) mg/dL Calcium 9.2 (8.6-10.2) mg/dL Total Bilirubin 0.5 (0.1-1.3) mg/dL AST 29 H D (5-25) IU/L ALT 37 H D (12-36) U/L Alkaline Phosphatase 127 H (56-112) IU/L Total Protein 6.9 (6.0-8.0) g/dL Albumin 3.4 (3.2-4.6) g/dL Globulin 3.5 g/dL Albumin/Globulin Ratio 1.0 Urine Color Yellow (YELLOW) Urine Appearance Clear (CLEAR) Urine pH 5.0 (5.0-6.5) Ur Specific [place] 1.015 (1.010-1.025) Urine Protein 100 H (NEGATIVE) mg/dL Urine Glucose (UA) 50 H (NORMAL) mg/dL Urine Ketones 15 H (NEGATIVE) mg/dL Urine Occult Blood Moderate H (NEGATIVE) Urine Nitrite Negative (NEGATIVE) Urine Bilirubin Negative (NEGATIVE) Urine Urobilinogen Normal (NEGATIVE) mg/dL Ur Leukocyte Esterase Small H (NEGATIVE) Urine RBC 10-20 H (0-5) Urine WBC 5-10 H (0-5) Ur Squamous Epith Cells Few H (NS,R,O) Urine Bacteria Few H (NS) Meds: Medications Discontinued Medications Generic Name Dose Route Start Last Admin Trade Name Freq PRN Reason Stop Dose Admin Gabapentin 600 mg 11/11/19 14:51 11/11/19 14:59 Neurontin PO 11/11/19 14:52 600 mg ONETIME ONE Administration Sodium Chloride 1,000 mls @ 999 mls/hr 11/11/19 14:45 11/11/19 14:58 Normal Saline IV 999 mls/hr ASDIRECTED SANDIP Administration Ketorolac Tromethamine 15 mg 11/11/19 15:19 11/11/19 15:28 Toradol IVPUSH 11/11/19 15:20 15 mg ONETIME ONE Administration Lidocaine/Tetracaine 10 ml 11/11/19 15:17 11/11/19 15:28 Let Soln TOP 11/11/19 15:18 10 ml ONETIME ONE Administration Morphine Sulfate 2 mg 11/11/19 16:06 11/11/19 16:10 Morphine IVPUSH 11/11/19 16:07 2 mg ONETIME ONE Administration Sodium Chloride 10 ml 11/11/19 16:12 11/11/19 16:12 Saline Flush FLUSH 10 ml ASDIRECTED PRN Administration Other Departure - Departure Time of Disposition: 16:50 Disposition: Home, Self-Care 01 Condition: Good Clinical Impression: Post herpetic neuralgia, UTI, Urinary tract infectious disease - Discharge Information Prescriptions: Acetaminophen/HYDROcodone [[place] 325-5 MG] 2 tab PO Q4H PRN #20 tab PRN Reason: Pain Sulfamethoxazole/Trimethoprim [Bactrim Ds Tablet] 1 each PO BID #6 tablet Instructions: Postherpetic Neuralgia Referrals: PCP,None [Primary Care Provider] - Forms: ED Department Discharge Additional Instructions: please read discharge instructions on post herpetic neuralgia take gabapentin 600 mg(6 of the 100 mg tablets) twice daily norco 5mg , take 2 tablets every 4-6 hours as needed for pain bactrim ds 1 tablet twice daily for 3 days follow up in a week Sepsis Event Note - Focused Exam Vital Signs: Vital Signs Temp Pulse Resp BP Pulse Ox 11/11/19 17:15 36.6 C 88 18 175/67 H 100 11/11/19 16:06 96 14 156/86 H 95 11/11/19 13:41 36.6 C 85 18 152/108 H 99 Date Exam was Performed: 11/11/19 Time Exam was Performed: 23:34
[2019-11-11 20:18] VITALS: BP 175/67; PULSE 88
== END 2019-11-11 17:25 | disposition home or self-care (01) ==
LOC: FB.ED 13:41
DX: N39.0 Urinary tract infection, site not specified (principal); B02.29 Other postherpetic nervous system involvement; Z79.82 Long term (current) use of aspirin
CPT/HCPCS: 36415; 80053; 81001; 85025; 96361; 96374; 96375; 99283; 99284; A9270; J1885; J2270; J7030

== ENCOUNTER 2020-04-02 02:09 | Emergency (ER) | payer MEDICARE ==
--- NOTE | 2020-04-02 04:20 | EDM.PDOC ---
ED HPI GENERAL MEDICAL PROBLEM - General Chief Complaint: General Stated Complaint: LEG WEAKNESS;FOOT PAIN Time Seen by Provider: 04/02/20 02:30 Source of Information: Reports: Patient, Family History Limitations: Reports: No Limitations - History of Present Illness INITIAL COMMENTS - FREE TEXT/NARRATIVE: c/o pain in R knee and RLE pt states she has not been able to walk for the past month, lives alone, son is there every day, had used a walker and a prosthesis on her LLE (BKA done ~1y ago) until 1m ago, now uses a w/c son drove her her and had to lift her out of pickup and put her in w/c, pt went to imaging just now in the w/c yet unable to transfer without 2 assist, bed (and not w/c) required to transfer her back to her room pt given injection 1m ago in R knee by PCP Dr Lara which helped that night but not the next day, continued with pain pt reports that she had a "blister" develop of her R pretib area that she attributes to the injection altho this is likely coincidental, has been covering it with a dressing, no better 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 pt thinks that she may need rehab has taken APAP 500 mg qhs but not during the day, took APAP 500 mg x 3 tabs last night which helped also on gabapentin 100 mg tid for years last bun/creat 32/0.9 with GFR >60 from 5m ago last BNP 4838 from 1y ago Right Lower Leg Pain Score (Numeric/FACES): 6 - Related Data Allergies Allergy/AdvReac Type Severity Reaction Status Date / Time No Known Allergies Allergy Verified 10/31/16 17:42 Home Meds: Home Meds Aspirin/Calcium Carbonate/Mag [Aspirin Buffered 325 mg Tab] 325 mg PO DAILY 05/04/15 [History] Glimepiride [Amaryl] 4 mg PO WITHBREAKFAST 05/04/15 [History] Omeprazole 20 mg PO DAILY PRN 05/04/15 [History] Pravastatin [Pravachol] 20 mg PO BEDTIME 05/04/15 [History] Sertraline [Zoloft] 200 mg PO DAILY 05/04/15 [History] carvediloL [Coreg] 6.25 mg PO BIDMEALS 05/04/15 [History] metFORMIN [Glucophage] 1,000 mg PO BIDMEALS 05/04/15 [History] Sennosides/Docusate Sodium [Sennosides-Docusate Sodium] 1 each PO DAILY 10/30/19 [History] Acetaminophen/HYDROcodone [[place] 325-5 MG] 2 tab PO Q4H PRN #20 tab 11/11/19 [Rx] Past Medical History HEENT History: Reports: Other (See Below) Other HEENT History: eyes dry since has been ill Cardiovascular History: Reports: Bypass, CAD, Heart Valve Replacement, Hypertension Gastrointestinal History: Reports: Cholelithiasis Genitourinary History: Reports: Urinary Incontinence 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 Musculoskeletal History: Reports: Amputation, Other (See Below) Other Musculoskeletal History: left bka Psychiatric History: Reports: Depression Endocrine/Metabolic History: Reports: Diabetes, Type II Other Hematologic History: BLOOD CLOTS IN HEART YEARS AGO Dermatologic History: Reports: Scleroderma - Past Surgical History Head Surgeries/Procedures: Reports: None Cardiovascular Surgical History: Reports: Coronary Artery Bypass, Valve Replacement GI Surgical History: Reports: Cholecystectomy Musculoskeletal Surgical History: Reports: Amputation Social & Family History - Family History Family Medical History: Noncontributory - Tobacco Use Smoking Status *Q: Unknown Ever Smoked - Caffeine Use Caffeine Use: Reports: Soda - Living Situation & Occupation Occupation: Retired ED ROS GENERAL - Review of Systems Review Of Systems: See Below Constitutional: Reports: No Symptoms HEENT: Reports: No Symptoms Respiratory: Reports: No Symptoms. Denies: Shortness of Breath Cardiovascular: Reports: No Symptoms. Denies: Chest Pain Endocrine: Reports: No Symptoms GI/Abdominal: Reports: No Symptoms : Reports: No Symptoms Musculoskeletal: Reports: Leg Pain, Joint Pain Skin: Reports: No Symptoms Neurological: Reports: Difficulty Walking Psychiatric: Reports: No Symptoms Hematologic/Lymphatic: Reports: No Symptoms Immunologic: Reports: No Symptoms ED EXAM, GENERAL - Physical Exam Exam: See Below Exam Limited By: No Limitations General Appearance: Alert, WD/WN, No Apparent Distress Ears: Normal External Exam, Hearing Grossly Normal Nose: Normal Inspection, Normal Mucosa, No Blood Throat/Mouth: Normal Voice, No Airway Compromise Head: Atraumatic, Normocephalic Neck: Normal Inspection, Supple, Non-Tender, Full Range of Motion Respiratory/Chest: No Respiratory Distress, Lungs Clear, Normal Breath Sounds, No Accessory Muscle Use, Chest Non-Tender Cardiovascular: Regular Rate, Rhythm, No Gallop, No JVD, No Rub, Other (left AKA, harsh decrescendo systolic murmur at LUSB c/w , no thomas murmur, no heave) GI/Abdominal: Soft, Non-Tender, No Distention Back Exam: Normal Inspection, Full Range of Motion. No: CVA Tenderness (R), CVA Tenderness (L) Extremities: Other (left AKA with skin intact on stump, RLE with ~2.5 x 2.5 ulcer in midline 60% down tib, moist with small amount of holman mucus, R pretib area is tender from knee to ankle with greatest tender 1/3rd down tib, there is 1-2+ edema of the atrophic RLE with warm feet but no DP pulse, R knee with minimal effusion and minimal osteophytes and no localized tender, pt points to tibia when asked where she has the greatest pain) Neurological: Alert, Oriented, CN II-XII Intact, Normal Cognition Psychiatric: Normal Affect Skin Exam: Warm, Dry, Intact, Normal Color, No Rash Lymphatic: No Adenopathy Course - Vital Signs Last Recorded V/S: Last Vital Signs Temp 36.1 C 04/02/20 02:14 Pulse 73 04/02/20 04:23 Resp 16 04/02/20 04:23 BP 135/58 L 04/02/20 04:23 Pulse Ox 92 L 04/02/20 04:23 - Orders/Labs/Meds Orders: Active Orders 24 hr Category Date Time Status EKG Documentation Completion [RC] ASDIRECTED Care 04/02/20 03:15 Ordered Knee 3V Rt [CR] Stat Exams 04/02/20 03:10 Ordered Tibia Fibula Rt [CR] Stat Exams 04/02/20 03:11 Ordered EKG 12 Lead [EK] Routine Ther 04/02/20 03:14 Ordered Labs: Laboratory Tests 04/02/20 04/02/20 04/02/20 Range/Units 03:50 03:50 03:50 WBC 10.0 (4.5-12.0) X10-3/uL RBC 3.25 (3.23-5.20) x10(6)uL Hgb 9.8 L (11.5-15.5) g/dL Hct 30.2 (30.0-51.3) % MCV 92.9 (80-96) fL MCH 30.1 (27.7-33.6) pg MCHC 32.4 (32.2-35.4) g/dL RDW 13.2 (11.5-15.5) % Plt Count 296 (125-369) X10(3)uL MPV 7.0 L (7.4-10.4) fL Neut % (Auto) 72.9 (46-82) % Lymph % (Auto) 12.6 L (13-37) % [place] % (Auto) 12.4 H (4-12) % Eos % (Auto) 2 (1.0-5.0) % Baso % (Auto) 0 (0-2) % Neut # (Auto) 7.3 (1.6-8.3) # Lymph # (Auto) 1.3 (0.6-5.0) # [place] # (Auto) 1.2 (0.0-1.3) # Eos # (Auto) 0.2 (0.0-0.8) # Baso # (Auto) 0.0 (0.0-0.2) # ESR 45 H (0-20) mm/hr PT (9.0-11.1) sec INR (1.00-1.24) APTT (24.4-33.2) SECONDS D-Dimer, Quantitative 1.41 H (0.0-0.59) mg/LFEU Sodium 138 (135-145) mmol/L Potassium 4.6 (3.5-5.3) mmol/L Chloride 104 (100-110) mmol/L Carbon Dioxide 24 (21-32) mmol/L BUN 35 H (7-18) mg/dL Creatinine 1.4 H (0.55-1.02) mg/dL Est Cr Clr Drug Dosing TNP Estimated GFR (MDRD) 36 L (>60) BUN/Creatinine Ratio 25.0 H (9-20) Glucose 168 H (80-116) mg/dL Calcium 8.6 (8.6-10.2) mg/dL Total Bilirubin 0.8 (0.1-1.3) mg/dL AST 69 H D (5-25) IU/L ALT 76 H D (12-36) U/L Alkaline Phosphatase 111 (56-112) IU/L Troponin I (4.0-60.3) pg/mL C-Reactive Protein (0.5-0.9) mg/dL NT-Pro-B Natriuret Pep (<=450) pg/mL Total Protein 6.5 (6.0-8.0) g/dL Albumin 2.9 L (3.2-4.6) g/dL Globulin 3.6 g/dL Albumin/Globulin Ratio 0.8 Urine Color (YELLOW) Urine Appearance (CLEAR) Urine pH (5.0-6.5) Ur Specific [place] (1.010-1.025) Urine Protein (NEGATIVE) mg/dL Urine Glucose (UA) (NORMAL) mg/dL Urine Ketones (NEGATIVE) mg/dL Urine Occult Blood (NEGATIVE) Urine Nitrite (NEGATIVE) Urine Bilirubin (NEGATIVE) Urine Urobilinogen (NEGATIVE) mg/dL Ur Leukocyte Esterase (NEGATIVE) Urine RBC (0-5) Urine WBC (0-5) Ur Squamous Epith Cells (NS,R,O) Urine Bacteria (NS) Urine Mucus (NS) 04/02/20 04/02/20 04/02/20 Range/Units 03:50 03:50 04:20 WBC (4.5-12.0) X10-3/uL RBC (3.23-5.20) x10(6)uL Hgb (11.5-15.5) g/dL Hct (30.0-51.3) % MCV (80-96) fL MCH (27.7-33.6) pg MCHC (32.2-35.4) g/dL RDW (11.5-15.5) % Plt Count (125-369) X10(3)uL MPV (7.4-10.4) fL Neut % (Auto) (46-82) % Lymph % (Auto) (13-37) % [place] % (Auto) (4-12) % Eos % (Auto) (1.0-5.0) % Baso % (Auto) (0-2) % Neut # (Auto) (1.6-8.3) # Lymph # (Auto) (0.6-5.0) # [place] # (Auto) (0.0-1.3) # Eos # (Auto) (0.0-0.8) # Baso # (Auto) (0.0-0.2) # ESR (0-20) mm/hr PT 11.6 H (9.0-11.1) sec INR 1.08 (1.00-1.24) APTT 26.8 (24.4-33.2) SECONDS D-Dimer, Quantitative (0.0-0.59) mg/LFEU Sodium (135-145) mmol/L Potassium (3.5-5.3) mmol/L Chloride (100-110) mmol/L Carbon Dioxide (21-32) mmol/L BUN (7-18) mg/dL Creatinine (0.55-1.02) mg/dL Est Cr Clr Drug Dosing Estimated GFR (MDRD) (>60) BUN/Creatinine Ratio (9-20) Glucose (80-116) mg/dL Calcium (8.6-10.2) mg/dL Total Bilirubin (0.1-1.3) mg/dL AST (5-25) IU/L ALT (12-36) U/L Alkaline Phosphatase (56-112) IU/L Troponin I 493.8 H* (4.0-60.3) pg/mL C-Reactive Protein 8.1 H* (0.5-0.9) mg/dL NT-Pro-B Natriuret Pep 34522 H* (<=450) pg/mL Total Protein (6.0-8.0) g/dL Albumin (3.2-4.6) g/dL Globulin g/dL Albumin/Globulin Ratio Urine Color Yellow (YELLOW) Urine Appearance Clear (CLEAR) Urine pH 5.0 (5.0-6.5) Ur Specific [place] 1.020 (1.010-1.025) Urine Protein 100 H (NEGATIVE) mg/dL Urine Glucose (UA) Normal (NORMAL) mg/dL Urine Ketones Negative (NEGATIVE) mg/dL Urine Occult Blood Negative (NEGATIVE) Urine Nitrite Negative (NEGATIVE) Urine Bilirubin Small H (NEGATIVE) Urine Urobilinogen 4 H (NEGATIVE) mg/dL Ur Leukocyte Esterase Negative (NEGATIVE) Urine RBC 0-5 (0-5) Urine WBC 0-5 (0-5) Ur Squamous Epith Cells Few H (NS,R,O) Urine Bacteria Few H (NS) Urine Mucus Few H (NS) Meds: Medications Discontinued Medications Generic Name Dose Route Start Last Admin Trade Name Kadeem PRN Reason Stop Dose Admin Morphine Sulfate 2 mg 04/02/20 05:22 Morphine IVPUSH 04/02/20 05:23 ONETIME ONE Ondansetron HCl 4 mg 04/02/20 05:22 Zofran IVPUSH 04/02/20 05:23 ONETIME ONE - Re-Assessments/Exams Free Text/Narrative Re-Assessment/Exam: 04/02/20 05:32 prelim ED read of R tib-fib XR neg for osteo, R knee film with moderate DJD that is inc'd in lateral compartment without bone on bone RLE pain most c/w ischemia inc'd d-dimer 3x ULN c/w inc'd CRP 8.1 and not necessarily indicative of DVT, yet needs heparin regardless for ischemia RLE pain 4/10 on arrival, yet got worse and pt then requested pain meds, given MS 2 mg IV as she has worsening of both cardiac and renal function inc'd trop 493 c/w BNP 23,052, no cardiac symptoms yet has harsh murmur in context of a procine AVR suggesting possible AV disfunction vs even SBE inc'd CRP 8.1 of uncertain etiology, must consider osteo RLE vs SBE vs other 04/02/20 05:45 d/w Dr Santos hospitalist at [facility] who accepted pt in transfer, Dr Santos d/w vascular surgery as well Departure - Departure Time of Disposition: 05:38 Disposition: DC/Tfer to Other Condition: Fair Clinical Impression: Pain of right lower extremity due to ischemia, Peripheral vascular disease of lower extremity, Weakness, Unable to walk, Difficulty transferring, Elevated C- reactive protein (CRP), Acute on chronic heart failure, Acute on chronic renal insufficiency, Elevated troponin, Normocytic normochromic anemia, Systolic murmur, Diabetic ulcer of right lower leg - Discharge Information *PRESCRIPTION DRUG MONITORING PROGRAM REVIEWED*: Not Applicable *COPY OF PRESCRIPTION DRUG MONITORING REPORT IN PATIENT GERRI: Not Applicable Referrals: PCP,None [Primary Care Provider] - Forms: ED Department Discharge Sepsis Event Note (ED) - Evaluation Sepsis Screening Result: No Definite Risk - Focused Exam Vital Signs: Vital Signs Temp Pulse Resp BP Pulse Ox 04/02/20 04:23 73 16 135/58 L 92 L 04/02/20 02:14 36.1 C 74 16 99/40 L 100 - My Orders Last 24 Hours: My Active Orders 04/02/20 03:10 Knee 3V Rt [CR] Stat 04/02/20 03:11 Tibia Fibula Rt [CR] Stat 04/02/20 03:14 EKG 12 Lead [EK] Routine 04/02/20 03:15 EKG Documentation Completion [RC] ASDIRECTED - Assessment/Plan Last 24 Hours: My Active Orders 04/02/20 03:10 Knee 3V Rt [CR] Stat 04/02/20 03:11 Tibia Fibula Rt [CR] Stat 04/02/20 03:14 EKG 12 Lead [EK] Routine 04/02/20 03:15 EKG Documentation Completion [RC] ASDIRECTED
[2020-04-02] MEDS: Ondansetron 4 MG/2 ML SDV IVPUSH ONE (05:40)
[2020-04-02] MEDS: Morphine 2 MG/ML SYRINGE IVPUSH ONE (05:42)
[2020-04-02] MEDS: Aspirin 81 MG Tab.Chew PO ONE (05:57)
[2020-04-02] MEDS: Heparin Sodium 5,000 Units/ML Vial IVPUSH ONE (06:09)
[2020-04-02] MEDS: Morphine 4 MG/ML VIAL IVPUSH ONE (06:30)
[2020-04-02] MEDS: Heparin Sodium/0.45% NaCl 25,000 UNITS/500 ML BAG IV SCH (06:31)
[2020-04-02 06:41] VITALS: BP 101/47; PULSE 72
--- NOTE | 2020-04-02 10:49 | CR ---
INDICATION: Increased pain 1/3 down tibia, question osteomyelitis. History of diabetes mellitus. RIGHT TIB/FIB: Frontal and lateral views of the right tibia and fibula revealed an appearance of demineralization, which may be on the basis of osteomalacia or osteoporosis, and should be correlated clinically. Degenerative changes are noted at the ankle mortise. Degenerative changes are also noted at the knee joint laterally with narrowing of the lateral femorotibial joint space and hypertrophic spurring in that area. Sclerosis is also seen at the tibial plateau. No finding to strongly suggest osteomyelitis was identified. Extensive arterial calcifications are noted. An acute fracture or dislocation was not identified. IMPRESSION: 1. Osteoarthritis. 2. Suggestion of demineralization, which may be on the basis of osteoporosis or osteomalacia - correlate clinically. 3. ASD. MTDD
--- NOTE | 2020-04-02 14:10 | CR ---
INDICATION: Pain, not able to walk. RIGHT KNEE: Five images of the right knee were obtained in frontal, lateral and patellar sunrise projections and revealed an appearance of demineralization compatible with osteoporosis or osteomalacia - correlate clinically. Osteoarthritic changes are noted at the knee joint with severe narrowing of the lateral femorotibial joint space and moderate hypertrophic degenerative changes off the femur and tibia laterally. Hypertrophic changes are also noted at the intercondylar spines and notch. An acute fracture or dislocation was not identified. Extensive arterial calcifications are noted at the distal thigh and proximal calf. Moderate hypertrophic degenerative changes are noted at the patellofemoral joint. The patellofemoral joint space appears to be fairly well maintained. IMPRESSION: 1. Osteoarthritis. 2. Demineralization. 3. No definite acute abnormality such as osteomyelitis, fracture or dislocation - if occult osteomyelitis is suspected clinically, 3-phase nuclear bone imaging may be helpful. 4. ASD. MTDD
== END 2020-04-02 07:10 | disposition other institution (70) ==
LOC: FB.ED 02:09
DX: I99.8 Other disorder of circulatory system (principal); I13.0 Hypertensive heart and chronic kidney disease with heart failure and stage 1 through stage 4 chronic kidney disease, or unspecified chronic kidney disease; I50.9 Heart failure, unspecified; N18.9 Chronic kidney disease, unspecified; D64.9 Anemia, unspecified; E11.622 Type 2 diabetes mellitus with other skin ulcer; L97.219 Non-pressure chronic ulcer of right calf with unspecified severity; I25.10 Atherosclerotic heart disease of native coronary artery without angina pectoris; E11.51 Type 2 diabetes mellitus with diabetic peripheral angiopathy without gangrene; E11.22 Type 2 diabetes mellitus with diabetic chronic kidney disease; R79.89 Other specified abnormal findings of blood chemistry; R01.1 Cardiac murmur, unspecified; F32.9 Major depressive disorder, single episode, unspecified
CPT/HCPCS: 36415; 73562; 73590; 80053; 81001; 83880; 84484; 85025; 85379; 85610; 85651; 85730; 86140; 93005; 96365; 96375; 96376; 99285; A9270; J1644; J2270; J2405

== ENCOUNTER 2020-04-07 10:19 | Inpatient (IN) | payer MEDICARE ==
[2020-04-14] MEDS ORDERED: Bumetanide 1 MG Tab PO PRN (15:00)
--- NOTE | 2020-04-14 15:33 | PCM.HP.2 ---
H&P History of Present Illness - General Date of Service: 04/14/20 Admit Problem/Dx: Admission Diagnosis/Problem Admission Diagnosis/Problem Weakness Source of Information: Patient, EMS Notes Reviewed, Provider - History of Present Illness Initial Comments - Free Text/Narative: Beatriz was admitted to [facility] April 02 for NSTEMI, elevated troponins but no EKG changes. CHF exacerbation, treated with Lasix IV, resolved, discharged on Bumex at home dose. Elevation of her white count, found to pneumonia on 04/11, treated with 4 days of Ceftriaxone and Azithromycin, will go 1 more day of Azithromycin and 3 more days of Ceftin starting tomorrow. 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 She has an arterial ulcer on right leg 2 cm x 1.5 cm, stage 2 pressure ulcer on coccyx 1 cm, seen by cardiovascular team, follow up appt on Apr 28. Diabetic, on sliding scale insulin in the hospital, resume home medications. Transfer today for Swing bed admission for weakness and PT/OT. She was evaluated in [place], had moderate assist x 2, worked a little bit with her in the room. Has incontinent briefs on. FULL CODE. Immunizations are up to date. Right lower back Pain Score (Numeric/FACES): 10 - Related Data Allergies/Adverse Reactions: Allergies Allergy/AdvReac Type Severity Reaction Status Date / Time No Known Allergies Allergy Verified 10/31/16 17:42 Home Medications: Home Meds Sertraline [Zoloft] 200 mg PO DAILY 05/04/15 [History] carvediloL [Coreg] 6.25 mg PO BIDMEALS 05/04/15 [History] metFORMIN [Glucophage] 1,000 mg PO BIDMEALS 05/04/15 [History] Aspirin 81 mg PO DAILY 04/14/20 [History] Azithromycin 250 mg PO DAILY 04/14/20 [History] Bumetanide 0.5 mg PO DAILY PRN 04/14/20 [History] Cefuroxime Axetil [Ceftin] 500 mg PO BID 04/14/20 [History] Gabapentin [Neurontin] 100 mg PO TID 04/14/20 [History] Sennosides/Docusate Sodium [Senna-S] 1 tab PO DAILY PRN 04/14/20 [History] atorvaSTATin [Lipitor] 20 mg PO DAILY 04/14/20 [History] Past Medical History HEENT History: Reports: Other (See Below) Other HEENT History: eyes dry since has been ill Cardiovascular History: Reports: Bypass, CAD, Heart Valve Replacement, Hypertension Gastrointestinal History: Reports: Cholelithiasis Genitourinary History: Reports: Urinary Incontinence ART HANDLER History: Reports: Other OB/BYN History: C/S Musculoskeletal History: Reports: Amputation, Other (See Below) Other Musculoskeletal History: left bka Psychiatric History: Reports: Depression Endocrine/Metabolic History: Reports: Diabetes, Type II Other Hematologic History: BLOOD CLOTS IN HEART YEARS AGO Dermatologic History: Reports: Scleroderma - Past Surgical History Head Surgeries/Procedures: Reports: None Cardiovascular Surgical History: Reports: Coronary Artery Bypass, Valve Replacement GI Surgical History: Reports: Cholecystectomy Musculoskeletal Surgical History: Reports: Amputation Social & Family History - Family History Family Medical History: Noncontributory - Tobacco Use Smoking Status *Q: Former Smoker Used Tobacco, but Quit: Yes Month/Year Tobacco Last Used: 1961 - Caffeine Use Caffeine Use: Reports: Soda - Recreational Drug Use Recreational Drug Use: No - Living Situation & Occupation Occupation: Retired H&P Review of Systems - Review of Systems: Review Of Systems: See Below General: Reports: No Symptoms HEENT: Reports: No Symptoms Pulmonary: Reports: No Symptoms Cardiovascular: Reports: No Symptoms Gastrointestinal: Reports: No Symptoms Genitourinary: Reports: No Symptoms Musculoskeletal: Reports: Back Pain, Leg Pain Skin: Reports: Wound (coccyx and right leg) Psychiatric: Reports: Depression, Anxiety Neurological: Reports: No Symptoms Hematologic/Lymphatic: Reports: No Symptoms Immunologic: Reports: No Symptoms Exam - Exam Exam: See Below - Vital Signs Vital Signs: Last Vital Signs Temp 98.7 F 04/14/20 13:50 Pulse 67 04/14/20 13:50 Resp 20 04/14/20 13:50 BP 123/58 L 04/14/20 13:50 Pulse Ox 93 L 04/14/20 14:57 Weight: 141 lb 6.4 oz - Exam General: Alert, Oriented, Mild Distress (with turning) HEENT: PERRLA, Mucosa Moist & [place] Neck: Supple, Trachea Midline Lungs: Clear to Auscultation, Normal Respiratory Effort. No: Crackles, Wheezing Cardiovascular: Regular Rate, Regular Rhythm GI/Abdominal Exam: Normal Bowel Sounds, Soft, Non-Tender, No Distention (Female) Exam: Deferred Rectal (Female) Exam: Deferred Back Exam: Normal Inspection (had mepilex dressing on lumbar spine, removed, no skin lesions/ulcers present, skin intact, no erythema.) Extremities: No Pedal Edema. No: Increased Warmth, Redness Peripheral Pulses: 2+: Radial (L), Radial (R) Skin: Wound (2 cm x 1.5 cm arterial ulcer, no drainage on RLE(zayas)), Decubitis (coccyx, stage 2, 1 cm) Neurological: Cranial Nerves Intact, Normal Speech Psychiatric: Anxious Sepsis Event Note - Evaluation Sepsis Screening Result: No Definite Risk - Focused Exam Vital Signs: Vital Signs Temp Pulse Resp BP Pulse Ox Pulse Ox 04/14/20 14:57 93 L 04/14/20 13:50 98.7 F 67 20 123/58 L 96 Date Exam was Performed: 04/14/20 Time Exam was Performed: 15:28 *Q Meaningful Use (ADM) - VTE Risk Assess *Q Each Risk Factor Represents 1 Point: Congestive heart failure (CHF) Total Score 1 Point Risk Factors: 1 Each Risk Factor Represents 3 Points: Age 75 Years or Greater Total Score 3 Point Risk Factors: 3 - Problem List (1) Weakness SNOMED Code(s): 45947771 ICD Code: R53.1 - WEAKNESS Status: Acute Current Visit: No (2) Status post non-ST elevation myocardial infarction (NSTEMI) SNOMED Code(s): 843660360 ICD Code: I25.2 - OLD MYOCARDIAL INFARCTION Status: Acute Current Visit: Yes Onset Date: ~04/02/20 (3) Pneumonia SNOMED Code(s): 773762457 ICD Code: J18.9 - PNEUMONIA, UNSPECIFIED ORGANISM Status: Acute Current Visit: Yes Onset Date: ~04/11/20 Qualifiers: Pneumonia type: due to unspecified organism Laterality: unspecified l aterality (4) CHF (congestive heart failure) SNOMED Code(s): 71479592 ICD Code: I50.9 - HEART FAILURE, UNSPECIFIED Status: Chronic Current Visit: Yes (5) Diabetic ulcer of right lower leg SNOMED Code(s): 841714212, 400661911 ICD Code: E11.622 - TYPE 2 DIABETES MELLITUS WITH OTHER SKIN ULCER; L97.919 - NON-PRS CHRONIC ULC UNSP PRT OF R LOW LEG W UNSP SEVERITY Status: Chronic Current Visit: No (6) Decubitus ulcer of coccyx, stage 2 SNOMED Code(s): 680915388 ICD Code: L89.152 - PRESSURE ULCER OF [place], STAGE 2 Status: Acute Current Visit: Yes (7) Difficulty transferring SNOMED Code(s): 880561314 ICD Code: R68.89 - OTHER GENERAL SYMPTOMS AND SIGNS Status: Acute Current Visit: No (8) Pain of right lower extremity due to ischemia SNOMED Code(s): 74736555971390943 ICD Code: M79.604 - PAIN IN RIGHT LEG; I99.8 - OTHER DISORDER OF CIRCULATORY SYSTEM Status: Chronic Current Visit: No (9) Peripheral vascular disease of lower extremity SNOMED Code(s): 571788460 ICD Code: I73.9 - PERIPHERAL VASCULAR DISEASE, UNSPECIFIED Status: Chronic Current Visit: No (10) Post herpetic neuralgia SNOMED Code(s): 9060034 ICD Code: B02.29 - OTHER POSTHERPETIC NERVOUS SYSTEM INVOLVEMENT Status: Chronic Current Visit: No (11) CAD (coronary artery disease) SNOMED Code(s): 47637612 ICD Code: I25.10 - ATHSCL HEART DISEASE OF [place] CORONARY ARTERY W/O ANG PCTRS Status: Chronic Current Visit: No Qualifiers: Coronary Disease-Associated Artery/Lesion type: [place] artery [place] vs. transplanted heart: [place] heart Associated angina: without angina Qualified Code(s): I25.10 - Atherosclerotic heart disease of [place] coronary artery without angina pectoris (12) Depression SNOMED Code(s): 03068645 ICD Code: F32.9 - MAJOR DEPRESSIVE DISORDER, SINGLE EPISODE, UNSPECIFIED Status: Chronic Current Visit: No Qualifiers: Depression Type: major depressive disorder Active/Remission status: remission status unspecified (13) Diabetes type 2, controlled SNOMED Code(s): 73986885, 929175918 ICD Code: E11.9 - TYPE 2 DIABETES MELLITUS WITHOUT COMPLICATIONS Status: Chronic Current Visit: No Qualifiers: Diabetes mellitus correction insulin use: without terminal manager use Diabetes mellitus complication status: without complication Qualified Code(s): E11.9 - Type 2 diabetes mellitus without complications (14) HTN (hypertension) SNOMED Code(s): 36338780 ICD Code: I10 - ESSENTIAL (PRIMARY) HYPERTENSION Status: Chronic Current Visit: No Qualifiers: Hypertension type: essential hypertension Qualified Code(s): I10 - Essential (primary) hypertension (15) Hyperlipidemia SNOMED Code(s): 89902565 ICD Code: E78.5 - HYPERLIPIDEMIA, UNSPECIFIED Status: Chronic Current Visit: No Qualifiers: Hyperlipidemia type: pure hypercholesterolemia Qualified Code(s): E78.00 - Pure hypercholesterolemia, unspecified; E78.0 - Pure hypercholesterolemia (16) GEMMA (obstructive sleep apnea) SNOMED Code(s): 73654693 ICD Code: G47.33 - OBSTRUCTIVE SLEEP APNEA (ADULT) (PEDIATRIC) Status: Chronic Current Visit: No (17) S/P AVR Status: Chronic Current Visit: No Problem List Initiated/Reviewed/Updated: Yes Orders Last 24hrs: Active Orders 24 hr Category Date Time Status Patient Status [ADT] Routine ADT 04/14/20 14:57 Active Blood Glucose Check, Bedside [RC] BIDMEALS Care 04/14/20 14:58 Active Height and Weight [RC] WEEKLY Care 04/14/20 14:57 Active Oxygen Therapy [RC] PRN Care 04/14/20 14:57 Active Up With Assistance [RC] ASDIRECTED Care 04/14/20 14:57 Active Up to Chair [RC] ASDIRECTED Care 04/14/20 14:57 Active VTE/DVT Education [RC] Per Unit Routine Care 04/14/20 14:57 Active Vital Signs [RC] PER UNIT ROUTINE Care 04/14/20 14:57 Active OT Evaluation and Treatment [CONS] Routine Cons 04/14/20 14:58 Active PT Evaluation and Treatment [CONS] Routine Cons 04/14/20 14:58 Active Consistent Carbohydrate Diet [DIET] Diet 04/14/20 Dinner Active Acetaminophen [Tylenol Extra Strength] Med 04/14/20 15:00 Ordered 500 mg PO Q6H Acetaminophen/HYDROcodone [[place] 325-5 MG] Med 04/14/20 14:58 Ordered 1 tab PO Q4H PRN Aspirin Med 04/15/20 09:00 Ordered 81 mg PO DAILY Azithromycin [Zithromax] Med 04/15/20 09:00 Ordered 250 mg PO DAILY Bumetanide [Bumex] Med 04/14/20 15:00 Ordered 0.5 mg PO DAILY PRN Cefuroxime Axetil [Ceftin] Med 04/14/20 21:00 Ordered 500 mg PO BID Docusate Sodium/Sennosides [Senna Plus] Med 04/14/20 15:00 Ordered 1 tab PO DAILY PRN Gabapentin [Neurontin] Med 04/14/20 21:00 Ordered 100 mg PO TID Ibuprofen [Motrin] Med 04/14/20 15:00 Ordered 200 mg PO Q6H Sertraline [Zoloft] Med 04/15/20 09:00 Ordered 200 mg PO DAILY atorvaSTATin [Lipitor] Med 04/15/20 09:00 Ordered 20 mg PO DAILY carvediloL [Coreg] Med 04/14/20 18:00 Ordered 6.25 mg PO BIDMEALS metFORMIN [Glucophage] Med 04/14/20 18:00 Ordered 1,000 mg PO BIDMEALS Resuscitation Status Routine Resus Stat 04/14/20 14:57 Ordered Medication Orders Acetaminophen (Tylenol Extra Strength) 500 mg PO Q6H SANDIP Hydrocodone Bitart/Acetaminophen ([place] 325-5 Mg) 1 tab PO Q4H PRN PRN Reason: Pain (moderate 4-6) Aspirin (Aspirin) 81 mg PO DAILY [facility] Atorvastatin Calcium (Lipitor) 20 mg PO DAILY SANDIP Azithromycin (Zithromax) 250 mg PO DAILY SANDIP Bumetanide (Bumex) 0.5 mg PO DAILY PRN PRN Reason: heart failure symptoms Carvedilol (Coreg) 6.25 mg PO BIDMEALS [facility] Gabapentin (Neurontin) 100 mg PO TID [facility] Ibuprofen (Motrin) 200 mg PO Q6H [facility] Metformin HCl (Glucophage) 1,000 mg PO BIDMEALS [facility] Non-Formulary Medication (Cefuroxime Axetil [Ceftin]) 500 mg PO BID [facility] Senna/Docusate Sodium (Senna Plus) 1 tab PO DAILY PRN PRN Reason: Constipation Sertraline HCl (Zoloft) 200 mg PO DAILY [facility] Assessment/Plan Comment:: 1. Admit to Swing Bed for nursing care, PT/OT services for weakness. 2. Pneumonia: Ceftin bid for 3 more days received Rocephin and Azithromycin today in [place] so will start tomorrow. Azithromycin 4 doses given in [place], 1 more dose tomorrow then discontinue. 3. CHF: continue Bumex and Coreg. 4. Decubitus stage 2 ulcer: Allevyn dressing with Aquacell AG. 5. Arterial ulcer: Allevyn dressing. CV appointment Apr 28. 6. DM: Consistent carb diet, AccuChecks bidmeals, resume home medications. 7. Depression: Zoloft was held in [place], will titrate up to home dose. 8. DVT prophylaxis: Lovenox 40 mg SQ daily. 9. FULL CODE. 10. Adjust treatments as needed. - Mortality Measure Prognosis:: Poor
[2020-04-14] MEDS: Acetaminophen 500 MG Tab PO SCH ×2 (16:03→22:19)
[2020-04-14] MEDS: Ibuprofen 200 MG Tab PO SCH ×2 (16:03→22:18)
[2020-04-14] MEDS: Gabapentin 100 MG Cap PO SCH ×2 (16:03→20:46)
[2020-04-14] MEDS: metFORMIN 1,000 MG Tab PO SCH (17:47)
[2020-04-14] MEDS: Carvedilol 6.25 MG Tab PO SCH (17:52)
[2020-04-15] MEDS: Acetaminophen/HYDROcodone 325-5 MG Tab PO PRN ×3 (00:01→20:18)
[2020-04-15] MEDS: Ibuprofen 200 MG Tab PO SCH ×4 (03:07→22:37)
[2020-04-15] MEDS: Acetaminophen 500 MG Tab PO SCH ×4 (03:07→22:38)
[2020-04-15] MEDS: Carvedilol 6.25 MG Tab PO SCH ×2 (08:53→18:27)
[2020-04-15] MEDS: metFORMIN 1,000 MG Tab PO SCH ×2 (08:53→18:27)
[2020-04-15] MEDS: atorvaSTATin 20 MG Tab PO SCH (08:54)
[2020-04-15] MEDS: Aspirin 81 MG Tab.Chew PO SCH (08:54)
[2020-04-15] MEDS: Cefuroxime 250 MG Tab PO SCH ×2 (08:54→20:18)
[2020-04-15] MEDS: Gabapentin 100 MG Cap PO SCH ×3 (08:54→20:18)
[2020-04-15] MEDS: Sertraline 100 MG Tab PO SCH (08:55)
[2020-04-15] MEDS ORDERED: Azithromycin 500 MG Tab PO SCH (09:00)
[2020-04-16] MEDS: Acetaminophen/HYDROcodone 325-5 MG Tab PO PRN ×2 (00:34→20:46)
[2020-04-16] MEDS: Acetaminophen 500 MG Tab PO SCH ×4 (04:13→22:34)
[2020-04-16] MEDS: Ibuprofen 200 MG Tab PO SCH ×4 (04:13→22:34)
[2020-04-16] MEDS: Aspirin 81 MG Tab.Chew PO SCH (08:36)
[2020-04-16] MEDS: metFORMIN 1,000 MG Tab PO SCH ×2 (08:36→17:21)
[2020-04-16] MEDS: Cefuroxime 250 MG Tab PO SCH ×2 (08:36→20:48)
[2020-04-16] MEDS: Sertraline 100 MG Tab PO SCH (08:37)
[2020-04-16] MEDS: atorvaSTATin 20 MG Tab PO SCH (08:37)
[2020-04-16] MEDS: Gabapentin 100 MG Cap PO SCH ×3 (08:41→20:46)
[2020-04-16] MEDS: Carvedilol 6.25 MG Tab PO SCH ×2 (08:45→17:20)
[2020-04-17] MEDS: Ibuprofen 200 MG Tab PO SCH ×4 (03:39→20:59)
[2020-04-17] MEDS: Acetaminophen 500 MG Tab PO SCH ×4 (03:39→20:59)
[2020-04-17] MEDS: atorvaSTATin 20 MG Tab PO SCH (08:11)
[2020-04-17] MEDS: Aspirin 81 MG Tab.Chew PO SCH (08:11)
[2020-04-17] MEDS: Gabapentin 100 MG Cap PO SCH ×3 (08:11→20:32)
[2020-04-17] MEDS: Carvedilol 6.25 MG Tab PO SCH ×2 (08:12→17:32)
[2020-04-17] MEDS: Cefuroxime 250 MG Tab PO SCH ×2 (08:12→20:32)
[2020-04-17] MEDS: metFORMIN 1,000 MG Tab PO SCH ×2 (08:12→17:32)
[2020-04-17] MEDS: Sertraline 100 MG Tab PO SCH (08:14)
[2020-04-17] MEDS: Acetaminophen/HYDROcodone 325-5 MG Tab PO PRN ×2 (09:20→20:31)
[2020-04-17] MEDS: Lidocaine 5% 700 MG Patch TOP SCH (11:50)
[2020-04-17] MEDS: Melatonin 3 MG Tab PO SCH (20:41)
[2020-04-18] MEDS: Acetaminophen/HYDROcodone 325-5 MG Tab PO PRN ×2 (02:18→23:58)
[2020-04-18] MEDS: Acetaminophen 500 MG Tab PO SCH ×4 (04:59→21:11)
[2020-04-18] MEDS: Ibuprofen 200 MG Tab PO SCH ×4 (04:59→21:10)
[2020-04-18] MEDS: Aspirin 81 MG Tab.Chew PO SCH (08:36)
[2020-04-18] MEDS: Gabapentin 100 MG Cap PO SCH ×3 (08:36→21:10)
[2020-04-18] MEDS: Carvedilol 6.25 MG Tab PO SCH ×2 (08:37→17:15)
[2020-04-18] MEDS: atorvaSTATin 20 MG Tab PO SCH (08:38)
[2020-04-18] MEDS: Sertraline 100 MG Tab PO SCH (08:38)
[2020-04-18] MEDS: metFORMIN 1,000 MG Tab PO SCH ×2 (08:38→17:15)
[2020-04-18] MEDS: Lidocaine 5% 700 MG Patch TOP SCH (09:05)
[2020-04-18] MEDS: Melatonin 3 MG Tab PO SCH (21:33)
[2020-04-19] MEDS: Acetaminophen 500 MG Tab PO SCH ×4 (04:12→21:56)
[2020-04-19] MEDS: Ibuprofen 200 MG Tab PO SCH ×4 (04:12→21:55)
--- NOTE | 2020-04-19 08:51 | PCM.PN ---
- General Info Date of Service: 04/19/20 Admission Dx/Problem (Free Text): This a 79-year-old female here for rehabilitation. She says she's feeling really good and would like to go home. We placed a lidocaine patch over her ulcer and she says her pain is much improved. She denies chest pain, shortness of breath, fevers, chills. - Patient Data Vitals - Most Recent: Last Vital Signs Temp 97.8 F 04/19/20 06:58 Pulse 62 04/19/20 06:58 Resp 16 04/19/20 06:58 BP 128/52 L 04/19/20 06:58 Pulse Ox 100 04/19/20 06:58 Weight - Most Recent: 141 lb 6.4 oz I&O - Last 24 Hours: Intake & Output 04/18/20 04/19/20 04/19/20 22:59 06:59 14:59 Intake Total 500 Balance 500 Lab Results Last 24 Hours: Laboratory Results - last 24 hr 04/18/20 04/19/20 Range/Units 17:12 06:11 POC Glucose 191 H 171 H (80-116) mg/dL Med Orders - Current: Current Medications Acetaminophen (Tylenol Extra Strength) 500 mg PO Q6H [facility] Last Admin: 04/19/20 04:12 Dose: 500 mg Documented by: Hydrocodone Bitart/Acetaminophen ([place] 325-5 Mg) 1 tab PO Q4H PRN PRN Reason: Pain (moderate 4-6) Last Admin: 04/18/20 23:58 Dose: 1 tab Documented by: Aspirin (Aspirin) 81 mg PO DAILY [facility] Last Admin: 04/18/20 08:36 Dose: 81 mg Documented by: Atorvastatin Calcium (Lipitor) 20 mg PO DAILY [facility] Last Admin: 04/18/20 08:38 Dose: 20 mg Documented by: Bumetanide (Bumex) 0.5 mg PO DAILY PRN PRN Reason: heart failure symptoms Carvedilol (Coreg) 6.25 mg PO BIDMEALS [facility] Last Admin: 04/18/20 17:15 Dose: 6.25 mg Documented by: Gabapentin (Neurontin) 100 mg PO TID [facility] Last Admin: 04/18/20 21:10 Dose: 100 mg Documented by: Ibuprofen (Motrin) 200 mg PO Q6H [facility] Last Admin: 04/19/20 04:12 Dose: 200 mg Documented by: Lidocaine (Lidoderm 5%) 700 mg TOP Q24H [facility] Last Admin: 04/18/20 09:05 Dose: 700 mg Documented by: Melatonin (Melatonin) 9 mg PO BEDTIME [facility] Last Admin: 04/18/20 21:33 Dose: 9 mg Documented by: Metformin HCl (Glucophage) 1,000 mg PO BIDMEALS [facility] Last Admin: 04/18/20 17:15 Dose: 1,000 mg Documented by: Miscellaneous Information (Remove Patch) 1 ea TRDERM 2200 [facility] Senna/Docusate Sodium (Senna Plus) 1 tab PO DAILY PRN PRN Reason: Constipation Last Admin: 04/18/20 21:34 Dose: 1 tab Documented by: Sertraline HCl (Zoloft) 200 mg PO DAILY [facility] Last Admin: 04/18/20 08:38 Dose: 200 mg Documented by: Discontinued Medications Azithromycin (Zithromax) 500 mg PO DAILY [facility] Stop: 04/15/20 09:01 Last Admin: 04/15/20 08:55 Dose: 500 mg Documented by: Cefuroxime Axetil (Ceftin) 500 mg PO BID [facility] Stop: 04/17/20 21:01 Last Admin: 04/17/20 20:32 Dose: 500 mg Documented by: Sertraline HCl (Zoloft) 100 mg PO DAILY [facility] Stop: 04/17/20 09:01 Last Admin: 04/17/20 08:14 Dose: 100 mg Documented by: - Exam General: Alert, Oriented, Cooperative Neck: Supple Cardiovascular: Regular Rate, Regular Rhythm, Murmurs Sepsis Event Note - Evaluation Sepsis Screening Result: No Definite Risk - Focused Exam Vital Signs: Vital Signs Temp Pulse Resp BP Pulse Ox 04/19/20 06:58 97.8 F 62 16 128/52 L 100 Date Exam was Performed: 04/19/20 Time Exam was Performed: 08:49 - Problem List & Annotations (1) Decubitus ulcer of coccyx, stage 2 SNOMED Code(s): 503936508 Code(s): L89.152 - PRESSURE ULCER OF [place], STAGE 2 Status: Acute Current Visit: Yes (2) Pneumonia SNOMED Code(s): 983861093 Code(s): J18.9 - PNEUMONIA, UNSPECIFIED ORGANISM Status: Acute Current Visit: Yes Onset Date: ~04/11/20 Qualifiers: Pneumonia type: due to unspecified organism Laterality: unspecified laterality (3) Status post non-ST elevation myocardial infarction (NSTEMI) SNOMED Code(s): 070019631 Code(s): I25.2 - OLD MYOCARDIAL INFARCTION Status: Acute Current Visit: Yes Onset Date: ~04/02/20 (4) CHF (congestive heart failure) SNOMED Code(s): 98371446 Code(s): I50.9 - HEART FAILURE, UNSPECIFIED Status: Chronic Current Visit: Yes (5) Acute on chronic renal insufficiency SNOMED Code(s): 608287580 Code(s): N28.9 - DISORDER OF KIDNEY AND URETER, UNSPECIFIED; N18.9 - CHRONIC KIDNEY DISEASE, UNSPECIFIED Status: Acute Current Visit: No (6) Difficulty transferring SNOMED Code(s): 048948437 Code(s): R68.89 - OTHER GENERAL SYMPTOMS AND SIGNS Status: Acute Current Visit: No (7) Weakness SNOMED Code(s): 12813809 Code(s): R53.1 - WEAKNESS Status: Acute Current Visit: No (8) Diabetes type 2, controlled SNOMED Code(s): 26783677, 288842157 Code(s): E11.9 - TYPE 2 DIABETES MELLITUS WITHOUT COMPLICATIONS Status: Chronic Current Visit: No Qualifiers: Diabetes mellitus retirement insulin use: without retirement use Diabetes mellitus complication status: without complication Qualified Code(s): E11.9 - Type 2 diabetes mellitus without complications - Problem List Review Problem List Initiated/Reviewed/Updated: Yes - My Orders Last 24 Hours: My Active Orders 04/19/20 22:00 Remove Patch 1 ea TITO 2199 - Plan Plan:: 1. Continue the lidocaine patch for another couple days then stop. 2. I encouraged the patient to work hard and PT/OT so she can home.
[2020-04-19] MEDS: Gabapentin 100 MG Cap PO SCH ×3 (09:46→21:59)
[2020-04-19] MEDS: metFORMIN 1,000 MG Tab PO SCH ×2 (09:46→18:02)
[2020-04-19] MEDS: Sertraline 100 MG Tab PO SCH (09:47)
[2020-04-19] MEDS: atorvaSTATin 20 MG Tab PO SCH (09:47)
[2020-04-19] MEDS: Carvedilol 6.25 MG Tab PO SCH ×2 (09:47→17:56)
[2020-04-19] MEDS: Aspirin 81 MG Tab.Chew PO SCH (09:47)
[2020-04-19] MEDS: Lidocaine 5% 700 MG Patch TOP SCH (09:48)
[2020-04-19] MEDS: Melatonin 3 MG Tab PO SCH (21:57)
[2020-04-20] MEDS: Ibuprofen 200 MG Tab PO SCH ×4 (04:06→21:43)
[2020-04-20] MEDS: Acetaminophen 500 MG Tab PO SCH ×4 (04:06→21:43)
[2020-04-20] MEDS: metFORMIN 1,000 MG Tab PO SCH ×2 (08:43→17:37)
[2020-04-20] MEDS: Aspirin 81 MG Tab.Chew PO SCH (08:44)
[2020-04-20] MEDS: Gabapentin 100 MG Cap PO SCH ×3 (08:44→20:02)
[2020-04-20] MEDS: atorvaSTATin 20 MG Tab PO SCH (08:44)
[2020-04-20] MEDS: Carvedilol 6.25 MG Tab PO SCH ×2 (08:44→17:37)
[2020-04-20] MEDS: Acetaminophen/HYDROcodone 325-5 MG Tab PO PRN (08:45)
[2020-04-20] MEDS: Sertraline 100 MG Tab PO SCH (08:45)
[2020-04-20] MEDS: Lidocaine 5% 700 MG Patch TOP SCH (11:12)
[2020-04-20] MEDS ORDERED: Aluminum Hydroxide/Magnesium Hydroxide Susp 30 ML Cup PO PRN (15:29)
[2020-04-20] MEDS: Melatonin 3 MG Tab PO SCH (20:01)
[2020-04-21] MEDS: Ibuprofen 200 MG Tab PO SCH ×4 (04:10→21:03)
[2020-04-21] MEDS: Acetaminophen 500 MG Tab PO SCH ×4 (04:10→21:04)
[2020-04-21] MEDS: Carvedilol 6.25 MG Tab PO SCH ×2 (08:06→17:56)
[2020-04-21] MEDS: metFORMIN 1,000 MG Tab PO SCH ×2 (08:07→17:55)
[2020-04-21] MEDS: Aspirin 81 MG Tab.Chew PO SCH (08:07)
[2020-04-21] MEDS: Gabapentin 100 MG Cap PO SCH ×3 (08:07→20:57)
[2020-04-21] MEDS: atorvaSTATin 20 MG Tab PO SCH (08:07)
[2020-04-21] MEDS: Sertraline 100 MG Tab PO SCH (08:08)
[2020-04-21] MEDS: Lidocaine 5% 700 MG Patch TOP SCH (10:00)
[2020-04-21] MEDS: Melatonin 3 MG Tab PO SCH (20:56)
[2020-04-22] MEDS: Acetaminophen 500 MG Tab PO SCH ×4 (03:26→21:09)
[2020-04-22] MEDS: Ibuprofen 200 MG Tab PO SCH ×4 (03:26→21:09)
[2020-04-22] MEDS: Aspirin 81 MG Tab.Chew PO SCH (08:39)
[2020-04-22] MEDS: metFORMIN 1,000 MG Tab PO SCH ×2 (08:39→18:12)
[2020-04-22] MEDS: Sertraline 100 MG Tab PO SCH (08:40)
[2020-04-22] MEDS: atorvaSTATin 20 MG Tab PO SCH (08:40)
[2020-04-22] MEDS: Carvedilol 6.25 MG Tab PO SCH ×2 (08:40→18:12)
[2020-04-22 08:41] VITALS: PULSE 60
--- NOTE | 2020-04-22 09:56 | PCM.PN ---
- General Info Date of Service: 04/22/20 Admission Dx/Problem (Free Text): Patient haven't little shortness of breath this morning. I saw her earlier and she wasn't she's has been gone for 2 days per she says is pressure on the left lower ribs. She denies cough, congestion or sore throat, fevers or chills. Denies chest pain - Patient Data Vitals - Most Recent: Last Vital Signs Temp 97.4 F 04/21/20 06:46 Pulse 60 04/22/20 08:40 Resp 18 04/21/20 06:46 BP 104/43 L 04/22/20 08:40 Pulse Ox 99 04/21/20 06:46 Weight - Most Recent: 142 lb 11.2 oz Lab Results Last 24 Hours: Laboratory Results - last 24 hr 04/20/20 04/21/20 04/21/20 Range/Units 17:40 05:37 16:53 POC Glucose 184 H 188 H 199 H (80-116) mg/dL Med Orders - Current: Current Medications Acetaminophen (Tylenol Extra Strength) 500 mg PO Q6H [facility] Last Admin: 04/22/20 03:26 Dose: 500 mg Documented by: Hydrocodone Bitart/Acetaminophen ([place] 325-5 Mg) 1 tab PO Q4H PRN PRN Reason: Pain (moderate 4-6) Last Admin: 04/20/20 08:45 Dose: 1 tab Documented by: Al Hydroxide/Mg Hydroxide (Mag-Al Susp) 30 ml PO Q4H PRN PRN Reason: Heartburn Last Admin: 04/20/20 15:37 Dose: 30 ml Documented by: Aspirin (Aspirin) 81 mg PO DAILY [facility] Last Admin: 04/22/20 08:39 Dose: 81 mg Documented by: Atorvastatin Calcium (Lipitor) 20 mg PO DAILY [facility] Last Admin: 04/22/20 08:40 Dose: 20 mg Documented by: Bumetanide (Bumex) 0.5 mg PO DAILY PRN PRN Reason: heart failure symptoms Carvedilol (Coreg) 6.25 mg PO BIDMEALS [facility] Last Admin: 04/22/20 08:40 Dose: 6.25 mg Documented by: Gabapentin (Neurontin) 100 mg PO TID [facility] Last Admin: 04/21/20 20:57 Dose: 100 mg Documented by: Ibuprofen (Motrin) 200 mg PO Q6H [facility] Last Admin: 04/22/20 03:26 Dose: 200 mg Documented by: Melatonin (Melatonin) 9 mg PO BEDTIME [facility] Last Admin: 04/21/20 20:56 Dose: 9 mg Documented by: Metformin HCl (Glucophage) 1,000 mg PO BIDMEALS [facility] Last Admin: 04/22/20 08:39 Dose: 1,000 mg Documented by: Senna/Docusate Sodium (Senna Plus) 1 tab PO DAILY PRN PRN Reason: Constipation Last Admin: 04/19/20 23:25 Dose: 1 tab Documented by: Sertraline HCl (Zoloft) 200 mg PO DAILY [facility] Last Admin: 04/22/20 08:40 Dose: 200 mg Documented by: Discontinued Medications Azithromycin (Zithromax) 500 mg PO DAILY [facility] Stop: 04/15/20 09:01 Last Admin: 04/15/20 08:55 Dose: 500 mg Documented by: Cefuroxime Axetil (Ceftin) 500 mg PO BID [facility] Stop: 04/17/20 21:01 Last Admin: 04/17/20 20:32 Dose: 500 mg Documented by: Lidocaine (Lidoderm 5%) 700 mg TOP Q24H [facility] Stop: 04/22/20 08:00 Last Admin: 04/21/20 10:00 Dose: 700 mg Documented by: Miscellaneous Information (Remove Patch) 1 ea TRDERM 2200 [facility] Stop: 04/22/20 08:00 Last Admin: 04/21/20 21:05 Dose: 1 ea Documented by: Sertraline HCl (Zoloft) 100 mg PO DAILY [facility] Stop: 04/17/20 09:01 Last Admin: 04/17/20 08:14 Dose: 100 mg Documented by: - Exam General: Alert, Oriented, Cooperative Lungs: Clear to Auscultation, Normal Respiratory Effort. No: Crackles, Rales, Rhonchi Cardiovascular: Regular Rate, Regular Rhythm, Murmurs Skin: Other (Second-degree ulcer right tibia) Sepsis Event Note - Evaluation Sepsis Screening Result: No Definite Risk - Focused Exam Vital Signs: Vital Signs Pulse BP 04/22/20 08:40 60 104/43 L Date Exam was Performed: 04/22/20 Time Exam was Performed: 09:54 - Problem List & Annotations (1) Decubitus ulcer of coccyx, stage 2 SNOMED Code(s): Second-degree ulcer right tibia. Code(s): L89.152 - PRESSURE ULCER OF [place], STAGE 2 Status: Acute Current Visit: Yes (2) Pneumonia SNOMED Code(s): 413365495 Code(s): J18.9 - PNEUMONIA, UNSPECIFIED ORGANISM Status: Acute Current Visit: Yes Onset Date: ~04/11/20 Qualifiers: Pneumonia type: due to unspecified organism Laterality: unspecified laterality (3) Status post non-ST elevation myocardial infarction (NSTEMI) SNOMED Code(s): 376416441 Code(s): I25.2 - OLD MYOCARDIAL INFARCTION Status: Acute Current Visit: Yes Onset Date: ~04/02/20 (4) CHF (congestive heart failure) SNOMED Code(s): 05526615 Code(s): I50.9 - HEART FAILURE, UNSPECIFIED Status: Chronic Current Visit: Yes (5) Acute on chronic renal insufficiency SNOMED Code(s): 627772850 Code(s): N28.9 - DISORDER OF KIDNEY AND URETER, UNSPECIFIED; N18.9 - CHRONIC KIDNEY DISEASE, UNSPECIFIED Status: Acute Current Visit: No (6) Difficulty transferring SNOMED Code(s): 115062576 Code(s): R68.89 - OTHER GENERAL SYMPTOMS AND SIGNS Status: Acute Current Visit: No (7) Weakness SNOMED Code(s): 82187306 Code(s): R53.1 - WEAKNESS Status: Acute Current Visit: No (8) Diabetes type 2, controlled SNOMED Code(s): 16697737, 792835551 Code(s): E11.9 - TYPE 2 DIABETES MELLITUS WITHOUT COMPLICATIONS Status: Chronic Current Visit: No 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: without shelter use Diabetes mellitus complication status: without complication Qualified Code(s): E11.9 - Type 2 diabetes mellitus without complications (9) Decubitus ulcer, stage 2 SNOMED Code(s): 294561378 Code(s): L89.92 - PRESSURE ULCER OF UNSPECIFIED SITE, STAGE 2 Status: Acute Current Visit: Yes (10) Shortness of breath SNOMED Code(s): 968621854 Code(s): R06.02 - SHORTNESS OF BREATH Status: Acute Current Visit: Yes - Problem List Review Problem List Initiated/Reviewed/Updated: Yes - My Orders Last 24 Hours: My Active Orders 04/22/20 09:52 CXR [Chest 2V] [CR] Routine 04/22/20 09:53 EKG Documentation Completion [RC] ASDIRECTED D Dimer [D-DIMER QUANTITATIVE] [COAG] Routine TROPONIN I [CHEM] Routine EKG 12 Lead [EK] Stat 04/22/20 09:54 CBC WITH AUTO DIFF [HEME] Routine 04/22/20 10:00 BASIC METABOLIC PANEL,BMP [CHEM] AM - Plan Plan:: 1. EKG, chest x-ray, troponin, d-dimer, CBC, panel 8 2. For the ulcer continue ulcer care. When she goes home she should see the wound people at [facility] [place]
[2020-04-22] MEDS: Gabapentin 100 MG Cap PO SCH ×3 (10:19→21:09)
--- NOTE | 2020-04-22 16:21 | CR ---
INDICATION: Dyspnea. CHEST TWO VIEWS: AP and two lateral views of the chest were obtained 04/22/20 and compared with 10/30/19 and 05/22/19. The heart is enlarged with post median sternotomy change. The aorta is calcified minimally in the arch area. Somewhat diminished bone density raises question of osteoporosis or osteomalacia - correlate clinically. Slightly increased flattening of the diaphragm leaves with prominent AP diameter and hyperaeration suggests progressive COPD and/or exacerbation of COPD. Upper lung field pulmonary vascular is slightly prominent raising question of a mild degree of CHF along with cardiac enlargement. Minimal bilateral pleural effusions are suggested along with infiltrate at the left lung base - lower lung field laterally. This could be on the basis of pneumonia, but should be correlated clinically. IMPRESSION: 1. ASHD post median sternotomy change with mild CHF. 2. Progressive COPD and/or exacerbation of COPD. 3. Minimal bibasilar pleural reactions with probable infiltrate at the lower lung field on the left, may represent pneumonia. 4. Somewhat demineralized appearance of the bony structures. Report was called to Dr. Gay at 1325 hours. [facility]
--- NOTE | 2020-04-22 17:25 | PCM.SN.2 ---
- Free Text/Narrative Note: Patient had open pneumonia in the left base. Start antibiotics by mouth. Patient is deftly stable.
[2020-04-22] MEDS ORDERED: Levofloxacin 500 MG Tab PO ONE (19:00)
[2020-04-22] MEDS: Melatonin 3 MG Tab PO SCH (21:08)
[2020-04-23] MEDS: Ibuprofen 200 MG Tab PO SCH ×2 (03:15→10:30)
[2020-04-23] MEDS: Acetaminophen 500 MG Tab PO SCH ×2 (03:15→10:31)
[2020-04-23] MEDS: Carvedilol 6.25 MG Tab PO SCH (08:05)
[2020-04-23] MEDS: metFORMIN 1,000 MG Tab PO SCH (08:06)
[2020-04-23] MEDS: Aspirin 81 MG Tab.Chew PO SCH (08:06)
[2020-04-23] MEDS: Sertraline 100 MG Tab PO SCH (08:06)
[2020-04-23] MEDS: atorvaSTATin 20 MG Tab PO SCH (08:06)
[2020-04-23] MEDS: Gabapentin 100 MG Cap PO SCH (08:13)
[2020-04-23 09:38] VITALS: BP 115/50
--- NOTE | 2020-04-23 15:13 | PCM.DCSUM1 ---
Discharge Summary - Hospital Course HPI Initial Comments: Beatriz was admitted to [facility] April 02 for NSTEMI, elevated troponins but no EKG changes. CHF exacerbation, treated with Lasix IV, resolved, discharged on Bumex at home dose. Elevation of her white count, found to pneumonia on 04/11, treated with 4 days of Ceftriaxone and Azithromycin, will go 1 more day of Azithromycin and 3 more days of Ceftin starting tomorrow. 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 She has an arterial ulcer on right leg 2 cm x 1.5 cm, stage 2 pressure ulcer on coccyx 1 cm, seen by cardiovascular team, follow up appt on Apr 28. Diabetic, on sliding scale insulin in the hospital, resume home medications. Transfer today for Swing bed admission for weakness and PT/OT. She was evaluated in [place], had moderate assist x 2, worked a little bit with her in the room. Has i ncontinent briefs on. FULL CODE. Immunizations are up to date. - Discharge Data Discharge Date: 04/23/20 (declined home health & services) Discharge Disposition: Home, Self-Care 01 Condition: Good - Referral to Home Health Primary Care Physician: Willis Salgado MD - Discharge Diagnosis/Problem(s) (1) Weakness SNOMED Code(s): 13692495 ICD Code: R53.1 - WEAKNESS Status: Acute (2) Status post non-ST elevation myocardial infarction (NSTEMI) SNOMED Code(s): 106783884 ICD Code: I25.2 - OLD MYOCARDIAL INFARCTION Status: Acute Onset Date: ~04/02/20 (3) Pneumonia SNOMED Code(s): 098973616 ICD Code: J18.9 - PNEUMONIA, UNSPECIFIED ORGANISM Status: Acute Onset Date: ~04/11/20 Qualifiers: Pneumonia type: due to unspecified organism Laterality: unspecified laterality (4) CHF (congestive heart failure) SNOMED Code(s): 99571452 ICD Code: I50.9 - HEART FAILURE, UNSPECIFIED Status: Chronic (5) Diabetic ulcer of right lower leg SNOMED Code(s): 645378922, 063877119 ICD Code: E11.622 - TYPE 2 DIABETES MELLITUS WITH OTHER SKIN ULCER; L97.919 - NON-PRS CHRONIC ULC UNSP PRT OF R LOW LEG W UNSP SEVERITY Status: Chronic (6) Decubitus ulcer of coccyx, stage 2 SNOMED Code(s): 647589780 ICD Code: L89.152 - PRESSURE ULCER OF [place], STAGE 2 Status: Acute (7) Difficulty transferring SNOMED Code(s): 839580163 ICD Code: R68.89 - OTHER GENERAL SYMPTOMS AND SIGNS Status: Acute (8) Pain of right lower extremity due to ischemia SNOMED Code(s): 43234649498129194 ICD Code: M79.604 - PAIN IN RIGHT LEG; I99.8 - OTHER DISORDER OF CIRCULATORY SYSTEM Status: Chronic (9) Peripheral vascular disease of lower extremity SNOMED Code(s): 275269706 ICD Code: I73.9 - PERIPHERAL VASCULAR DISEASE, UNSPECIFIED Status: Chronic (10) Post herpetic neuralgia SNOMED Code(s): 1374272 ICD Code: B02.29 - OTHER POSTHERPETIC NERVOUS SYSTEM INVOLVEMENT Status: Chronic (11) CAD (coronary artery disease) SNOMED Code(s): 97442997 ICD Code: I25.10 - ATHSCL HEART DISEASE OF [place] CORONARY ARTERY W/O ANG PCTRS Status: Chronic Qualifiers: Coronary Disease-Associated Artery/Lesion type: [place] artery [place] vs. transplanted heart: [place] heart Associated angina: without angina Qualified Code(s): I25.10 - Atherosclerotic heart disease of [place] coronary artery without angina pectoris (12) Depression SNOMED Code(s): 37650777 ICD Code: F32.9 - MAJOR DEPRESSIVE DISORDER, SINGLE EPISODE, UNSPECIFIED Status: Chronic Qualifiers: Depression Type: major depressive disorder Active/Remission status: remission status unspecified (13) Diabetes type 2, controlled SNOMED Code(s): 50426720, 825933806 ICD Code: E11.9 - TYPE 2 DIABETES MELLITUS WITHOUT COMPLICATIONS Status: Chronic Qualifiers: Diabetes mellitus skilled nursing insulin use: without long term care phlebotomist use Diabetes mellitus complication status: without complication Qualified Code(s): E11.9 - Type 2 diabetes mellitus without complications (14) HTN (hypertension) SNOMED Code(s): 78156458 ICD Code: I10 - ESSENTIAL (PRIMARY) HYPERTENSION Status: Chronic Qualifiers: Hypertension type: essential hypertension Qualified Code(s): I10 - Essential (primary) hypertension (15) Hyperlipidemia SNOMED Code(s): 86393718 ICD Code: E78.5 - HYPERLIPIDEMIA, UNSPECIFIED Status: Chronic Qualifiers: Hyperlipidemia type: pure hypercholesterolemia Qualified Code(s): E78.00 - Pure hypercholesterolemia, unspecified; E78.0 - Pure hypercholesterolemia (16) GEMMA (obstructive sleep apnea) SNOMED Code(s): 43125258 ICD Code: G47.33 - OBSTRUCTIVE SLEEP APNEA (ADULT) (PEDIATRIC) Status: Chronic (17) S/P AVR Status: Chronic - Patient Summary/Data Consults: Consultations 04/14/20 14:58 OT Evaluation and Treatment [CONS] Routine Please Evaluate and Treat. OT Reason for Consult: ADL's This query below is only for informational purposes and is not editable. Admission Diagnosis/Problem: Weakness PT Evaluation and Treatment [CONS] Routine Please Evaluate and Treat. PT Reason for Consult: Strengthening This query below is only for informational purposes and is not editable. Admission Diagnosis/Problem: Weakness Hospital Course: Admitted for therapy services after having NSTEMI, complicated with CHF, and pneumonia in [place] 04/02-04/15, completed antibiotics 04/17. She worked with PT/OT in co-treatment for safety, she has not worn her prosthetic for a few years so doesn't fit anymore. Therapy unable to adjust here. Making progress, PT/OT recommended prison for placement but patient refused due to financial concerns, stated she would go home with her son, also declined Home health and outpatient therapy services. She had increased shortness of breath yesterday found to have LLL pneumonia, started on Levaquin, has not required oxygen, stable so will go home with her son and complete 7 day course of Levaquin. She had Allevyn dressing on coccyx and RLL ulcers, Lidocaine patch was added, pain improved. Has not required any [place] for 48 hours, & Lidocaine was removed 04/21. Her coccyx ulcer improved to a small slit in gluteal fold, dressing was removed. New Allevyn dressing placed on RLE today, measured 1 cm in greatest diameter, good granulation tissue present, will leave in place until seen by Cardiovascular surgeon Dr Whitmore next week on Apr 28. - Patient Instructions Diet: Heart Healthy Diet Activity: As Tolerated Showering/Bathing: May Shower Notify Provider of: Fever, Increased Pain, Nausea and/or Vomiting Other/Special Instructions: Follow up with Dr Salgado once antibiotics are complete to recheck your pneumonia. Follow up with Dr Whitmore at [facility] on 04/28/20 at 330 pm, you also have appointments prior to Dr Whitmore visit for ultrasound studies on 04/28/20 at 11:20 am at [facility] level US 4 and 12:20pm at [facility] US 9. - Discharge Plan *PRESCRIPTION DRUG MONITORING PROGRAM REVIEWED*: Yes *COPY OF PRESCRIPTION DRUG MONITORING REPORT IN PATIENT GERRI: No Prescriptions/Med Rec: levoFLOXacin [Levofloxacin] 250 mg PO DAILY 6 Days #6 tablet Home Medications: Home Meds Sertraline [Zoloft] 200 mg PO DAILY 05/04/15 [History] carvediloL [Coreg] 6.25 mg PO BIDMEALS 05/04/15 [History] metFORMIN [Glucophage] 1,000 mg PO BIDMEALS 05/04/15 [History] Aspirin 81 mg PO DAILY 04/14/20 [History] Bumetanide 0.5 mg PO DAILY PRN 04/14/20 [History] Gabapentin [Neurontin] 100 mg PO TID 04/14/20 [History] Sennosides/Docusate Sodium [Senna-S] 1 tab PO DAILY PRN 04/14/20 [History] atorvaSTATin [Lipitor] 20 mg PO DAILY 04/14/20 [History] Melatonin 9 mg PO BEDTIME tablet 04/23/20 [Rx] levoFLOXacin [Levofloxacin] 250 mg PO DAILY 6 Days #6 tablet 04/23/20 [Rx] Oxygen Therapy Mode: Room Air Patient Handouts: Weakness, [id number], Preventing Antibiotic Resistance, Community-Acquired Pneumonia, Adult, [id number] Referrals: Willis Salgado MD [Primary Care Provider] - - Discharge Summary/Plan Comment DC Time >30 min.: No - General Info Date of Service: 04/23/20 Admission Dx/Problem (Free Text: Tired, didn't sleep well last night, states harder to breath when she is on the left side as she is being turned every 2 hours to keep her off her coccyx. Her coccyx and leg ulcers are improving. Not requiring any dressings on coccyx due to size, more a slit now. She had shortness of breath yesterday, chest x-ray done and found pneumonia, started on Levaquin last night. Wants to go home. - Patient Data Vitals - Most Recent: Last Vital Signs Temp 97.4 F 04/23/20 08:00 Pulse 60 04/23/20 08:05 Resp 16 04/23/20 08:00 BP 115/54 L 04/23/20 08:05 Pulse Ox 99 04/23/20 08:00 Weight - Most Recent: 142 lb 11.2 oz Lab Results - Last 24 hrs: Laboratory Results - last 24 hr 04/22/20 04/23/20 Range/Units 17:41 06:30 POC Glucose 172 H 189 H (80-116) mg/dL Med Orders - Current: Current Medications Discontinued Medications Acetaminophen (Tylenol Extra Strength) 500 mg PO Q6H [facility] Last Admin: 04/23/20 10:31 Dose: 500 mg Documented by: Hydrocodone Bitart/Acetaminophen ([place] 325-5 Mg) 1 tab PO Q4H PRN PRN Reason: Pain (moderate 4-6) Last Admin: 04/20/20 08:45 Dose: 1 tab Documented by: Al Hydroxide/Mg Hydroxide (Mag-Al Susp) 30 ml PO Q4H PRN PRN Reason: Heartburn Last Admin: 04/20/20 15:37 Dose: 30 ml Documented by: Aspirin (Aspirin) 81 mg PO DAILY [facility] Last Admin: 04/23/20 08:06 Dose: 81 mg Documented by: Atorvastatin Calcium (Lipitor) 20 mg PO DAILY [facility] Last Admin: 04/23/20 08:06 Dose: 20 mg Documented by: Azithromycin (Zithromax) 500 mg PO DAILY [facility] Stop: 04/15/20 09:01 Last Admin: 04/15/20 08:55 Dose: 500 mg Documented by: Bumetanide (Bumex) 0.5 mg PO DAILY PRN PRN Reason: heart failure symptoms Carvedilol (Coreg) 6.25 mg PO BIDMEALS [facility] Last Admin: 04/23/20 08:05 Dose: 6.25 mg Documented by: Cefuroxime Axetil (Ceftin) 500 mg PO BID [facility] Stop: 04/17/20 21:01 Last Admin: 04/17/20 20:32 Dose: 500 mg Documented by: Gabapentin (Neurontin) 100 mg PO TID [facility] Last Admin: 04/23/20 08:13 Dose: 100 mg Documented by: Ibuprofen (Motrin) 200 mg PO Q6H [facility] Last Admin: 04/23/20 10:30 Dose: 200 mg Documented by: Levofloxacin (Levaquin) 500 mg PO ONETIME ONE Stop: 04/22/20 19:01 Last Admin: 04/22/20 18:12 Dose: 500 mg Documented by: Levofloxacin (Levaquin) 250 mg PO 1800 [facility] Stop: 04/28/20 18:01 Lidocaine (Lidoderm 5%) 700 mg TOP Q24H [facility] Stop: 04/22/20 08:00 Last Admin: 04/21/20 10:00 Dose: 700 mg Documented by: Melatonin (Melatonin) 9 mg PO BEDTIME [facility] Last Admin: 04/22/20 21:08 Dose: 9 mg Documented by: Metformin HCl (Glucophage) 1,000 mg PO BIDMEALS [facility] Last Admin: 04/23/20 08:06 Dose: 1,000 mg Documented by: Miscellaneous Information (Remove Patch) 1 ea TRDERM 2200 [facility] Stop: 04/22/20 08:00 Last Admin: 04/21/20 21:05 Dose: 1 ea Documented by: Senna/Docusate Sodium (Senna Plus) 1 tab PO DAILY PRN PRN Reason: Constipation Last Admin: 04/19/20 23:25 Dose: 1 tab Documented by: Sertraline HCl (Zoloft) 100 mg PO DAILY [facility] Stop: 04/17/20 09:01 Last Admin: 04/17/20 08:14 Dose: 100 mg Documented by: Sertraline HCl (Zoloft) 200 mg PO DAILY [facility] Last Admin: 04/23/20 08:06 Dose: 200 mg Documented by: - Exam Lungs: Reports: Clear to Auscultation, Normal Respiratory Effort, Decreased Breath Sounds (LLL). Denies: Rales, Wheezing Cardiovascular: Reports: Regular Rate, Regular Rhythm, Murmurs GI/Abdominal Exam: Normal Bowel Sounds, Soft, Non-Tender, No Distention Extremities: No Pedal Edema. No: Increased Warmth Wound/Incisions: Reports: Decubitis (2 mm x 8 mm), Other (RLE arterial ulcer: 1 cm, improved; good granulation tissue present. )
[2020-04-23] MEDS ORDERED: Levofloxacin 250 MG Tab PO SCH (18:00)
== END 2020-04-23 12:35 | disposition home or self-care (01) | DRG 947 ==
LOC: FB.MS 04-14 13:35
PROVIDERS: ADMIT Family Medicine; ATTEND Family Medicine
DX: R53.1 Weakness (principal); J18.9 Pneumonia, unspecified organism; I21.4 Non-ST elevation (NSTEMI) myocardial infarction; B02.29 Other postherpetic nervous system involvement; I13.0 Hypertensive heart and chronic kidney disease with heart failure and stage 1 through stage 4 chronic kidney disease, or unspecified chronic kidney disease; I50.9 Heart failure, unspecified; E11.622 Type 2 diabetes mellitus with other skin ulcer; L89.152 Pressure ulcer of sacral region, stage 2; R68.89 Other general symptoms and signs; E11.51 Type 2 diabetes mellitus with diabetic peripheral angiopathy without gangrene; I25.10 Atherosclerotic heart disease of native coronary artery without angina pectoris; F32.9 Major depressive disorder, single episode, unspecified; E78.5 Hyperlipidemia, unspecified; G47.33 Obstructive sleep apnea (adult) (pediatric); E11.22 Type 2 diabetes mellitus with diabetic chronic kidney disease; N18.9 Chronic kidney disease, unspecified; Z79.82 Long term (current) use of aspirin; Z79.84 Long term (current) use of oral hypoglycemic drugs; Z79.899 Other long term (current) drug therapy; Z79.01 Long term (current) use of anticoagulants; Z95.2 Presence of prosthetic heart valve; Z87.891 Personal history of nicotine dependence
CPT/HCPCS: 36415; 71046; 80048; 82962; 84484; 85025; 85379; 93005; 97110-GO; 97110-GP; 97161-GP; 97165-GO; 97530-GO; 97530-GP; A9270-GY